=== PATIENT | male | born 1945 | race Caucasian/White ===

== ENCOUNTER 2024-05-30 10:49 | Inpatient (IN) | payer SELFPAY ==
[2024-05-30] VITALS (7 sets, daily range): BP systolic 153–198; BP diastolic 80–115; PULSE 56–81; RESP 15–18; TEMP 36.5–36.8; O2SAT 94–100; BMI 21.2
--- NOTE | ~2024-05-30 | XR_ITS ---
EXAMINATION: XR fluoroscopy no charge DATE: 05/31/2024 16:35 INDICATION: Intertrochanteric fracture of proximal right femur. TECHNIQUE: 5 intraoperative spot fluoroscopic views of right femur were obtained. I was not present. Fluoroscopy exposure time was 52 seconds. COMPARISON: Right hip radiographs 05/30/2024 FINDINGS: There is an intertrochanteric fracture of proximal right femur in near-anatomic alignment. Internal fixation is seen with antegrade intramedullary archana and 2 femoral head/neck screws. IMPRESSION: 1. Intertrochanteric fracture of proximal right femur status post open reduction internal fixation. Reviewed, dictated and finalized at location [] STANT DEAN IMPRESSION: 1. Intertrochanteric fracture of proximal right femur status post open reductio n internal fixation.
--- NOTE | ~2024-05-30 | XR_ITS ---
EXAMINATION: XR hip RT min 2V DATE: 05/30/2024 11:47 INDICATION: Right hip pain. Fall. TECHNIQUE: 2 views of right hip were obtained. COMPARISON: None. FINDINGS: There is a comminuted intertrochanteric fracture of proximal right femur. The main distal f racture fragment demonstrates 10 degrees varus angulation and impaction. There is mild right hip oste oarthritis. There is severe lumbar spondylosis. IMPRESSION: 1. Comminuted intertrochanteric fracture of proximal right femur. 2. Mild right hip osteoarthritis. Reviewed, dictated and finalized at location A. ER SERVICER
--- NOTE | ~2024-05-30 | XR_ITS ---
EXAMINATION: XR chest 1V portable DATE: 05/30/2024 13:05 INDICATION: Fall. TECHNIQUE: A single frontal view of the chest was obtained. COMPARISON: None. FINDINGS: Skinfolds overlie left hemithorax. No pneumonia, pleural effusion, or pneumothorax. The hea rt size is normal. IMPRESSION: 1. No acute cardiopulmonary disease. Reviewed, dictated and finalized at location A. STRIAN TRAINER
--- NOTE | ~2024-05-30 | US_ITS ---
EXAMINATION: US venous doppler LE RT DATE: 06/04/2024 15:41 INDICATION: Postoperative swelling TECHNIQUE: Grayscale ultrasound images without and with compression and Doppler ultrasound images of the right lower extremity veins were obtained. COMPARISON: None. FINDINGS: The visualized portions of right common femoral vein, popliteal vein and greater saphenous vein outfl ow are patent. Thrombus is identified within the superficial femoral vein and deep femoral vein confluence with nonc ompressibility. Noncompressibility is also detected within the right posterior tibial/peroneal veins with absence of flow. IMPRESSION: Thrombus within the superficial femoral vein and deep femoral vein confluence with noncompressibility . Noncompressibility and absence of flow within the right posterior tibial and peroneal veins. Reviewed, dictated and finalized at location A. DEVELOPER DESIGNER IMPRESSION: Thrombus within the superficial femoral vein and deep femoral vein confluence w ith noncompressibility. Noncompressibility and absence of flow within the right posterior tibial and pe roneal veins.
--- OUTSIDE RECORDS SUMMARY | 2024-05-30 11:44 | XMS_ITS | Clinical Summary ---
Author Organization [facility] Address [address] [place] [address] Care Team Providers Care Computer Education Professor Name Role Phone Unavailable Primary Care Provider Unavailabl e Source Comments [facility],non-owned Affiliates and Associated Physician Practices is amultiple site organization consisting of ambulatory clinics and hospital sitesin [place], [place], [place] and [place]. This disclosure is being madepursuant to the Care Everywhere program and may not contain all information available regarding this patient. Last updated 17.[employer] Allergies No known active allergies Medications * Be aware that medications may not be up to date on this document. Alwaysverify current medications with the patient. Medication Sig Dispensed Refills Start Date End Date Status prednisoLONE acetate (Pred Forte) 1 % ophthalmic suspensionIndications: Cystoid macular edema of right eye Instill 1 (one) drop into right eye once daily 15 mL 1 12/20/2022 Active ketorolac (Acular) 0.5 % ophthalmic solutionIndications:Cy stoid macular edema of right eye Instill 1 (one) drop into right eye once daily 10 mL 1 12/20/2022 Active Active Problems Problem Noted Date Diagnosed Date BCC (basal cell carcinoma of skin) 06/28/2022 Dry eye syndrome of both eyes 06/28/2022 Nuclear sclerotic cataract, bilateral 06/28/2022 Optic cupping, bilateral 06/28/2022 Overview (06/28/2022): Increased C/D ratio OU (0.4) Mixed type age-related cataract, both eyes 10/19 Family History Medical History Relation Name Comments CVA Father Cancer - Lung Mother Asthma Neg Hx Cancer - Breast Neg Hx Cancer - Other Neg Hx Cancer - Skin, Melanoma Neg Hx Cancer - Skin, Non Melanoma Neg Hx Eczema Neg Hx Glaucoma Neg Hx Hemophilia Neg Hx Psoriasis Neg Hx Relation Name Status Comments Father Mother Social History Tobacco Use Types Packs/Day Years Used Date Smoking Tobacco: Former Cigarettes 3 30 1 956 - 1985 Smokeless Tobacco: Never Comments:quit smoking 1985 Alcohol Use Standard Drinks/Week Comments Yes 0 (1 standard drink = 0.6 oz pure alcohol) nightly x 60 years - 1 bottle of wine/night and 2-3 drinks of alcohol/night AUDIT-C Answer Date Recorded Q1: How often do you have a drink containing alcohol? Never 12/26/2021 Q2: How many drinks containi ng alcohol do you have on a typical day when you are drinking? Patient does not drink Q3: How often do you have si x or more drinks on one occasion? Never 12/26/2021 Sex and Gender Information Value Date Recorded Sex Assigned at Not on file Gender Identity Not on file Sexual Orientation Not on file Last Filed Vital Signs Vital Sign Reading Time Taken Comments Blood Pressure 186/78 12/26/2021 2:25 PM CDT Pulse 52 12/26/2021 2:25 PM CDT Temperature 36.5 C (97.7 F) 12/26/2021 2:04 PM CDT Respiratory Rate 17 12/26/2021 2:25 PM CDT Oxygen Saturation 99% 12/26/2021 2:25 PM CDT Inhaled Oxygen Concentration - - Weight 61.2 kg (135 lb) 12/26/2021 10:16 AM CDT Height 170.2 cm (5' 7 ) 12/26/2021 10:16 AM CDT Body Mass Index 21.14 12/26/2021 10:16 AM CDT Plan of Treatment Health Maintenance Due Date Last Done Comments HEPATITIS C SCREENING 12/26/1963 DTAP/TDAP/TD VACCINES (1 - Tdap) 1964 PNEUMOCOCCAL VACCINE 50+ (1 of 1 - PCV) 12/31/1995 ZOSTER VACCINE (1 of 2) 12/31/1995 Respiratory Syncytial Virus (RSV) Vaccine Pt: or over 60 yrs (1 - 1-dose 75+ series) 2020 COVID-19 VACCINE ( - 2023-2 5 season) 2023 INFLUENZA VACCINE (#1) 2023 DEPRESSION SCREENING 04/02/2024 HEPATITIS B VACCINE Aged Out No longe r eligible based on patient's age to complete this topic HIB VACCINE Aged Out No longer eligi ble based on patient's age to complete this topic HPV VACCINE Aged Out No longer eligi ble based on patient's age to complete this topic MENINGOCOCCAL (Group B) VACCINE Aged Out No longer eligible based on patient's age to complete this topic MENINGOCOCCAL VACCINE Aged Out No gaby nixon eligible based on patient's age to complete this topic Medical Devices Implanted Type Area Plasma Processing Centrifuge Operator Device Identifier Shelf Expiration Date Model / Serial / Lot Lens Iol 10 D +19.5 [employer] Mod [employer] Bcnvx - [id number] Implanted:Qty: 1 on 12/12/2021 by Kamari Thao MD at [facility] Right: Eye [employer] 04/01/2023 MA60AC.195 / [id number] / Lens Iol 0 D +20.5 [employer]mar Mod L Bcnvx - [id number] Implanted:Qty: 1 on 12/26/2021 by Kamari Thao MD at [facility] Left: Eye [employer] 11/29/2025 SA60WF.205 / [id number] /
--- OUTSIDE RECORDS SUMMARY | 2024-05-30 11:44 | XMS_ITS | Encounter Summary ---
Author Organization [facility] Address [address] [place] [address] Care Team Providers Care Circulation Representative Name Role Phone Unavailable Primary Care Provider Unavailabl e Reason for Visit * Reason Onset Date Comments Nurse Only 02/08/2022 Encounter Details Date Type Department Care Team (Late st Contact Info) Description 02/08/2022 Telephone [facility] [address] [place] [address] Kamari Thao MD [facility] [facility] [place] [address] Nurse Only Social History Tobacco Use Types Packs/Day Years Used Date Smoking Tobacco: Former Cigarettes 06 29 1 956 - 1985 Smokeless Tobacco: Never [...] on file Sexual Orientation Not on file documented as of this encounter Miscellaneous Notes * Telephone Encounter - Devin Mila Y - 02/08/2022 1:36 PM CST Pt is scheduled for today and need to reschedule appointment AGE SUPERVISOR documented in this encounter Plan of Treatment Not on file documented as of this encounter Visit Diagnoses Not on filedocumented in this encounter
--- OUTSIDE RECORDS SUMMARY | 2024-05-30 11:44 | XMS_ITS | Patient Health Summary ---
Author Organization [facility] Address [address] [place] [address] Care Team Providers Care Corporate Associate Name Role Phone Unavailable Primary Care Provider Unavailabl e Note from [facility],non-owned Affiliates and Associated Physician Practices is amultiple site organization consisting of ambulatory clinics and hospital sitesin [place], [place], [place] and [place]. This disclosure is being madepursuant to the Care Everywhere program and may not contain all information available regarding this patient. Last updated 17.[facility] Allergies No known active allergies Medications * Be aware that medications may not be up to date on this document. Alwaysverify current medications with the patient. * prednisoLONE acetate (Pred Forte) 1 % ophthalmic suspension(Started 12/20/2022) Instill 1 (one) drop into right eye once daily 1 refill by 12/20/2023 * ketorolac (Acular) 0.5 % ophthalmic solution(Started 12/20/2022) Instill 1 (one) drop into right eye once daily 1 refill by 12/20/2023 Active Problems Problem Noted Date Diagnosed Date BCC (basal cell carcinoma of skin) 06/28/2022 Dry eye syndrome of both eyes 06/28/2022 Nuclear sclerotic cataract, bilateral 06/28/2022 Optic cupping, bilateral 06/28/2022 Mixed type age-related cataract, both eyes 10/19 Social History Tobacco Use Types Packs/Day Years [...] Mass Index 21.14 12/26/2021 10:16 AM CDT Medical Devices Implanted Type Area Research Staff Member Device Identifier Shelf Expiration Date Model / Serial / Lot Lens Iol 10 D +19.5 [employer] Mod C Bcnvx - [id number] Implanted:Qty: 1 on 12/12/2021 by Kamari Thao MD at [facility] Right: Eye [employer] 04/01/2023 MA60AC.195 / [id number] / Lens Iol 0 D +20.5 [employer] Mod L Bcnvx - [id number] Implanted:Qty: 1 on 12/26/2021 by Kamari Thao MD at [facility] Left: Eye [employer] 11/29/2025 SA60WF.205 / [id number] / Procedures * RETINAL ANALYSIS OCT(Performed 12/20/2022) Performed for Cystoid macular edema of right eye * RETINAL ANALYSIS OCT(Performed 08/21/2022) Performed for Cystoid macular edema of right eye, 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) * OPH OCT TEST [facility](Performed 07/10/2022) Performed for Cystoid macular edema of right eye * OPH OCT TEST [facility](Performed 05/23/2022) Performed for Cystoid macular edema of right eye * EXTRACTION CATARACT WITH INSERTION LENS(Performed 12/26/2021) Performed for Mixed type age-related cataract, both eyes * EXTRACTION CATARACT WITH INSERTION LENS(Performed 12/12/2021) Performed for Mixed type age-related cataract, both eyes * XR FOOT RIGHT 3VW OR MORE(Performed 11/28/2021) Performed for Right foot pain * OPH IOL TEST [facility](Performed 10/19/2021) Performed for Mixed type age-related cataract, both eyes * OPH OCT TEST [facility](Performed 10/19/2021) Performed for Mixed type age-related cataract, both eyes * OPH CORNEAL TOPOGRAPHY TEST [facility](Performed 10/19/2021) Performed for Mixed type age-related cataract, both eyes * [place] [facility] MOHS MG TQ H/N/H/F/G 1ST STAG 5 BLOC(Performed 11/20/2017) Performed for Basal cell carcinoma (BCC) of left side of neck * [place] [facility] MOHS MG TQ H/N/H/F/G EA ADDL STAG(Performed 11/20/2017) Performed for Basal cell carcinoma (BCC) of left side of neck * [place] REPR CMPL WND HEAD,FAC,HAND 2.6-7.5(Performed 11/20/2017) Performed for Basal cell carcinoma (BCC) of left side of neck * [place] BIOPSY OF SKIN LESION(Performed 10/02/2017) Performed for Neoplasm of uncertain behavior of skin * DERMATOPATHOLOGY(Performed 10/02/2017) Performed for Neoplasm of uncertain behavior of skin Results * RETINAL ANALYSIS OCT (12/20/2022 2:06 PM CDT) Anatomical Region Laterality Modality Head External-Camera Photography Narrative 12/21/2022 9:04 PM CDT Images from the original result were not included. OCT Macula OD: Trace recurrent subfoveal SRF, preserved foveal contour OS: Normal retina crosssection with preservation of fovea, clivus, and cellular lamina OD top 08/21/22, bottom 12/20/22: OS top 08/21/22, bottom 12/20/22: Tamica Shah MD OPHTHALMOLOGY SCHED ORD W PACS * RETINAL ANALYSIS OCT (08/21/2022 2:25 PM CDT) Anatomical Region Laterality Modality Head External-Camera Photography Narrative 08/27/2022 11:55 AM CDT Images from the original result were not included. OCT OD: Resolution of CME - Normal retina crosssection with preservation of fovea, clivus, and cellular lamina-improved compared to prior OS: Normal retina crosssection with preservation of fovea, clivus, and cellular lamina- stable compared to prior OD bottom today: OS bottom today: Tamica Shah MD OPHTHALMOLOGY SCHED ORD W PACS * OCT (07/10/2022 3:10 PM CDT) Anatomical Region Laterality Modality Other 07/10/2022 3:10 PM CDT Tamica Shah MD OPHTHALMOLOGY SERVIC ES ORDERABLES * OPH OCT TEST [facility] (05/23/2022 3:49 PM FIBER HEEL PIECE SHAPER) Anatomical Region Laterality Modality Other 05/23/2022 3:49 PM FIBER HEEL PIECE SHAPER Kamari Thao MD OPHTHALMOLOGY SERVIC ES ORDERABLES * XR FOOT RIGHT 3VW OR MORE (11/28/2021 2:41 PM CDT) Anatomical Region Laterality Modality Ankle / Foot Radiographic Delicia ging 11/28/2021 3:05 PM CDT Impressions 11/28/2021 3:08 PM CDT IMPRESSION: Fifth metatarsal fracture > Interpreting Provider: Liliana Humphrey MD on 11/28/2021 3:08 PM Narrative 11/28/2021 3:08 PM CDT PROCEDURE: XR FOOT RIGHT 3VW OR MORE, DATE/TIME OF EXAM: 11/28/2021 2:43 PM, LOCATION [facility] INDICATION: M79.671: Pain in right foot ADDITIONAL CLINICAL INFORMATION: Ordering Provider Reason For Exam: Technologist Note: Weightbearing Additional: COMPARISON: None. FINDINGS: There is a recent fracture through the base of the right fifth metatarsal. Joint spaces are preserved. No focal swelling or gas in the soft tissues. Procedure Note Liliana Humphrey MD - 11/28/2021 PROCEDURE: XR FOOT RIGHT 3VW OR MORE, DATE/TIME OF EXAM: :43 PM, LOCATION [facility] INDICATION: M79.671: Pain in right foot ADDITIONAL CLINICAL INFORMATION: Ordering Provider Reason For Exam: Technologist Note: Weightbearing Additional: COMPARISON: None. FINDINGS: There is a recent fracture through the base of the right fifth metatarsal. Joint spaces are preserved. No focal swelling or gas in the softtissues. IMPRESSION: Fifth metatarsal fracture > Interpreting Provider: Liliana Humphrey MD on 11/28/2021 3:08 PM Denny Saleem MD DIAGNOSTIC IMAGING O RDERABLES * IOL Master (Lenstar) (10/19/2021 1:46 PM CDT) Anatomical Region Laterality Modality Other 10/19/2021 1:46 PM CDT Kamari Thao MD OPHTHALMOLOGY SERVIC ES ORDERABLES * OCT (10/19/2021 1:44 PM CDT) Anatomical Region Laterality Modality Other 10/19/2021 1:44 PM CDT Kamari Thao MD OPHTHALMOLOGY SERVIC ES ORDERABLES * Corneal Topography (10/19/2021 1:35 PM CDT) Anatomical Region Laterality Modality Other 10/19/2021 1:35 PM CDT Kamari Thao MD OPHTHALMOLOGY SERVIC ES ORDERABLES * [place] REPR CMPL WND HEAD,FAC,HAND 2.6-7.5, [place] [facility] MOHS MG TQ H/N/H/F/G EA ADDL STAG, [place] CHMSRG MOHSMG TQ H/N/H/F/G 1ST STAG 5 BLOC (11/20/2017 5:21 PM CDT) Narrative Marixa Car MD - 11/20/2017 5:21 PM CDT Marixa Car MD 11/20/2017 5:21 PM Date of Service: 11/20/2017 Surgery: Mohs micrographic surgery Repair Type: complex Repair Size: 6.2cm Suture Material: monocryl 4-0;Fast Absorbing Gut 5-0 Tumor Type: Basal cell carcinoma Location: left neck Derm-Path A PreOp Size: 2.0 x 2.0 cm. PostOp Size: 3.9 x 3.7 cm. [facility] Level of Defect: fat Stage I: The patient was placed supine on the operating table. The cancer was identified, outlined with a marker, and verified by the patient. The entire surgical field was prepped with Hibiclens. The surgical site was anesthetized using Lidocaine 1% with epinephrine 1:100,000 buffered with sodium bicarbonate 8.4% in a 1:10 ratio. The area of clinically apparent tumor was debulked with 2mm curette. The layer of tissue was then surgically excised using a #15 blade and was then transferred onto a specimen sheet maintaining the orientation of the specimen. Hemostasis was obtained using monopolar electrodessication. The wound site was then covered with a dressing while the tissue samples were processed for examination. The excised tissue was transported to the [facility] histology laboratory maintaining the tissue orientation. The tissue specimen was relaxed so that the entire surgical margin was in a a single horizontal plane for sectioning andinked for precise mapping. A precise reference map was drawn to reflect the sectioning of the specimen, colored inking of the margins, and orientation on the patient. The tissue was processed using horizontal sectioning ofthe base and continuous peripheral margins. The histopathologic sections were reviewed in conjunction with the reference map. Total blocks: 1 Total slides: 3 Residual tumor was identified and indicated in red on the reference map, identifying the location where further tissue excision was necessary. Therefore, an additional stage of Mohs Micrographic surgery was deemed necessary. Stage II The patient was returned to the operating room, and the area prepped in the usual manner. The residual tumor was excised using the reference map as a guide. The specimen was transfered to a labeled specimen sheet maintaining the orientation of the specimen. Hemostasis was obtained and the wound site was covered with a dressing while the tissue was processed for examination. The excised tissue was transported to the Mohs histology laboratory maintaining orientation. The specimen margins were inked for precise mapping and a reference map was prepared for the is additional stage to maintain precise orientation as described above. The tissue was processed using horizontal sectioning of the base and continuous peripheral margins. The histopathologic sections were reviewed in conjunction with the reference map. Total blocks: 1 Total slides: 3 There were no cancer cells visualized on examination, therefore Mohs surgery was complete. Reconstruction: Complex Closure Primary Surgeon : Josep Research Programmer Surgeon : Martínez The patient was taken to the operative suite and placed supine on the operating room table. The defect was identified. Appropriate markings were made with a marking pen to plan the repair. The area was infiltrated with Lidocaine 1% with epinephrine 1:100,000 buffered with sodium bicarbonate 8.4% in a 1:10 ratio and prepped with Hibiclens and draped with sterile towels. The wound was debeveled and undermined widely. Hemostasis was obtained using monopolar dessication. The dermis and subcutaneous tissue were then approximated using buried vertical mattress sutures. Care was taken to orient tension vectors of the closure to minimize distortion of free margins. Cones of redundant tissue were then excised within relaxed skin tension lines on both sides of the defect and additional buried sutures were placed in a similar fashion where needed. Percutaneous simple running sutures were carefully placed for maximum eversion and meticulous approximation. Repair Size: 6.2 cm Sutures Used: monocryl 4-0;Fast Absorbing Gut 5-0. The wound was cleansed with saline and ointment was applied along the wound surface. A sterile pressure dressing was applied. Wound care instructions were given verbally and in writing. The patient left the operating suite in stable condition. Patient was informed that additional refinement of the resulting surgical scar may be used as a second stage of this reconstruction. The Attending surgeon was present for the cardozo portions of the Mohs surgery and the entire reconstruction and always immediately available. Aristeo Soliz MD Dermatology Mohs Fellow, PGY-5 11/20/2017 3:54 PM Marixa Car MD PROCEDURE/MINOR SURG ICAL ORDERABLES * [place] BIOPSY OF SKIN LESION (10/02/2017 10:45 AM CDT) Narrative Ruby Diego MD - 10/02/2017 10:45 AM CDT Josi Murillo MD 10/02/2017 10:45 AM Risks, benefits and alternatives to shave biopsy were discussed with the patient. Verbal consent obtained. Location: L neck Skin prep: Alcohol Anesthesia: 1% lidocaine with epinephrine Hemostasis: Aluminum Chloride Dressing and wound care discussed. Patient agrees to phone call for results and message if not available. Josi Murillo MD [facility] Dermatology Resident, PGY-3 Ruby Diego MD PROCEDURE/MINOR BROWN RGICAL ORDERABLES * DERMATOPATHOLOGY (10/02/2017 12:00 AM CDT) Case Report Dermatopathology Report Case: [id number] Authorizing Provider: Ruby Diego MD Collected: 10/02/2017 12:00 AM Ordering Location: [facility] Received: 10/04/2017 07:51 AM Dermatology Pathologist: Anat Bhakta MD Specimen: Skin, left neck 12:51 PM CDT DERMATOPATHOLOGY LABORATORY Final Diagnosis Specimen A. SKIN, left neck: BASAL CELL CARCINOMA, NODULAR TYPE (C44.41) 12:51 PM CDT DERMATOPATHOLOGY LABORATORY Clinical History Pigmented BCC vs other. 12:51 PM CDT DERMATOPATHOLOGY LABORATORY Gross Description Specimen A: Received is one formalin filled container labeled with the patient's name and designated left neck. The specimen consists of a shave biopsy measuring [id number]. Jar 0. 12:51 PM CDT DERMATOPATHOLOGY LABORATORY Microscopic Description Specimen A. SKIN, left neck: Within the dermis there are aggregates of basaloid cells with a high nuclear to cytoplasmic ratio and peripheral palisading. 12:51 PM CDT DERMATOPATHOLOGY LABORATORY Disclaimer An external and internal positive and negative controls are appropriate for the histochemical, immunohistochemical and immunofluorescence stain(s) in this case (if any), except where stated explicitly. The performance characteristics of the stain(s) cited in this report were developed and its performance characteristic determined by the Dermatopathology Laboratory at [facility]. These tests need not be, and therefore are not, approved by the [place] Food and Drug Administration. The tests are used for clinical purposes. Billing Codes Specimen Charges Stain Charges 58818 1 8 12:51 PM CDT DERMATOPATHOLOGY LABORATORY Embedded Images 8 12:51 PM CDT DERMATOPATHOLOGY LABORATORY Pathology/Cytolog y TISSUE SPECIMEN FROM SKIN / Unknown 10/02/2017 10/04/2017 7:51 AM CDT Ruby Diego MD LAB - PATHOLOGY/CY TOLOGY ORDERABLES DERMATOPATHOLOGY LABORATORY [facility] - Department of Dermatology [facility], 5th Floor Lab [address] [phone]
--- OUTSIDE RECORDS SUMMARY | 2024-05-30 11:44 | XMS_ITS | Continuity of Care Document ---
Author Organization [facility] Address [address] [place] [address] [place] [address] Phone Care Team Providers Care Shelter Supervisor Name Role Phone Pablito Zavala DO Unavailable Unavailable Advance Directives Directive Yes / No Effective Date File Name No Information Encounters Encounter Description Practice Location Reason(s) For Visit Diagnoses Date Provider Providers Copied on Encounter [facility], [address] [place] [address] [address], [place], [place], [id number], [place] tel:[phone] SEC [facility][note 3] No Information Sally Moore. [address] [facility], [place], [address], [place]. tel:[phone] Family History Family Member Type Diagnosis Age At Onset No Information Payers Payer name Insurance type Covered libertarian ID Authoriza tion(s) No Information Social History Type Description Quantity Date Captured Comments Sex Male Smoking Status No Information Chief Complaint And Reason For Visit No Information Reason For Referral Reason For Referral No Information History Of Present Illness Encounter Date Complaint History Of Prese nt Illness No Information Functional Status Date Functional Assessmen t No Information Instructions Date Instruction Additional Infor mation No Information Assessments Type Assessment Date No Information Patient Care Teams Name Effective Dates (start - stop) Status Members No Information
--- OUTSIDE RECORDS SUMMARY | 2024-05-30 11:44 | XMS_ITS | Referral Summary ---
Author Organization [facility] [employer] Address [address] [place] [address] Care Team Providers Care Pheresis Specialist Name Role Phone Unavailable Primary Care Provider Unavailabl e Source Comments [facility]non-owned Affiliates and Associated Physician Practices is amultiple site organization consisting of ambulatory clinics and hospital sitesin [place], [place], [place] and [place]. This disclosure is being madepursuant to the Care Everywhere program and may not contain all information available regarding this patient. Last updated 17.[facility] Allergies No known active allergies Medications * [...] Former Cigarettes 3 30 1 956 - 1986 Smokeless Tobacco: Never Comments:quit smoking 1985 Alcohol [...] 12/26/2021 10:16 AM CDT Plan of Treatment Not on file Medical Devices Implanted Type Area Waterworks Chief Engineer Device Identifier Shelf Expiration Date Model / Serial / Lot Lens Iol 10 D +19.5 [employer] Bcnvx - [id number] Implanted:Qty: 1 on 12/12/2021 by Kamari Thao MD at [facility] Right: Eye [employer] 04/01/2023 MA60AC.195 / [id number] / Lens Iol 0 D +20.5 [employer] Mod L Bcnvx - [id number] Implanted:Qty: 1 on 12/26/2021 by Kamari Thao MD at [facility] Left: Eye [employer] 11/29/2025 SA60WF.205 / [id number] /
--- NOTE | 2024-05-30 12:34 | ECG_ITS ---
Test Date: 2024-05-30 12:45:45 Measurements Intervals [place] Rate: 61 P: -6 [place]: 120 QRS: -11 QRSD: 90 T: 17 QT: 412 QTc: 418 Interpretive Statements SINUS RHYTHM VOLTAGE CRITERIA FOR LVH CANNOT R/O SEPTAL INFARCT, AGE INDETERMINATE CONSIDER INFERIOR INFARCT, AGE INDETERMINATE BASELINE ARTIFACT- I, II, III, AVR, AVL, AVF, V1-V6 ABNORMAL ECG No previous ECG available for comparison Electronically Signed On 05-30-2024 13:00:58 SOCIAL MEDIA MARKETING MANAGER by Abelardo Berry D.O.
[2024-05-30] MEDS: HYDROcodone/acetaminophen (*CRX) 5-325 MG TABLET 2 TAB PO (12:49)
--- OUTSIDE RECORDS SUMMARY | 2024-05-30 12:56 | XMS_ITS | Clinical Summary ---
Author Organization [facility] [employer] Address [address] [facility] [place] [address] Care Team Providers Care Dean Of Student Services Name Role Phone Unavailable Primary Care Provider Unavailabl e Source Comments [facility] [employer],non-owned Affiliates and Associated Physician Practices is amultiple site organization consisting of ambulatory clinics and hospital sitesin [place], [place], [place] and [place]. This disclosure is being madepursuant to the Care Everywhere program and may not contain all information available regarding this patient. Last updated 17.[employer] Allergies No known active allergies Medications * [...] this topic Medical Devices Implanted Type Area Assessment Nurse Practitioner Device Identifier Shelf Expiration Date Model / Serial / Lot Lens Iol 10 D +19.5 [employer] Mod [employer] Bcnvx - [id number] Implanted:Qty: 1 on 12/12/2021 by Kamari Thao MD at [facility] Right: Eye [employer] 04/01/2023 MA60AC.195 / [id number] / Lens Iol 0 D +20.5 [employer] Mod L Bcnvx - [id number] Implanted:Qty: 1 on 12/26/2021 by Kamari Thao MD at [facility] Left: Eye [employer] 11/29/2025 SA60WF.205 / [id number] /
--- OUTSIDE RECORDS SUMMARY | 2024-05-30 12:56 | XMS_ITS | Continuity of Care Document ---
Author Organization [facility] Address [id number] [place] [address] [place] [address] Phone Care Team Providers Care Java Lead Name Role Phone Pablito Zavala DO Unavailable Unavailable Advance Directives Directive Yes / No Effective Date File Name No Information Encounters Encounter Description Practice Location Reason(s) For Visit Diagnoses Date Provider Providers Copied on Encounter [facility], [id number] [place] [address] [address], [place], [place], [id number], [place] tel:[phone] [facility] No Information Sally Moore. [address] [facility], [place], [address], [place]. tel:[phone] Family History Family Member Type Diagnosis Age At Onset No Information Payers Payer name Insurance type Covered republican ID Authoriza tion(s) No Information Social History [...]
--- OUTSIDE RECORDS SUMMARY | 2024-05-30 12:56 | XMS_ITS | Encounter Summary ---
Author Organization [facility] Address [address] [place] [place] [address] Care Team Providers Care Vegetable Harvest Machine Operator Name Role Phone Unavailable Primary Care Provider Unavailabl e Reason for Visit * Reason Onset Date Comments Nurse Only 02/08/2022 Encounter Details Date Type Department Care Team (Late st Contact Info) Description 02/08/2022 Telephone [facility] [address] [place] [address] Kamari Thao MD [facility] [facility] DE[place] [address] Nurse Only Social History Tobacco [...] for today and need to reschedule appointment D SCOUT documented in this encounter Plan of Treatment Not on file documented as of this encounter Visit Diagnoses Not on filedocumented in this encounter
--- OUTSIDE RECORDS SUMMARY | 2024-05-30 12:56 | XMS_ITS | Referral Summary ---
Author Organization [facility] [employer] Address [address] [place] [address] Care Team Providers Care Forest Manager Name Role Phone Unavailable Primary Care Provider Unavailabl e Source Comments [facility] [employer],non-owned Affiliates and Associated Physician Practices is amultiple site organization consisting of ambulatory clinics and hospital sitesin [place], [place], [place] and [place]. This disclosure is being madepursuant to the Care Everywhere program and may not contain all information available regarding this patient. Last updated 17.[employer] [employer] Allergies No known active allergies Medications * [...] on file Medical Devices Implanted Type Area Energy Sales Broker Device Identifier Shelf Expiration Date Model / Serial / Lot Lens Iol 10 D +19.5 [employer] Bcnvx - [id number] Implanted:Qty: 1 on 12/12/2021 by Kamari Thao MD at [facility] Right: Eye [employer] 04/01/2023 MA60AC.195 / [id number] / Lens Iol 0 D +20.5 [employer] Bcnvx - [id number] Implanted:Qty: 1 on 12/26/2021 by Kamari Thao MD at [facility] Left: Eye [employer] 11/29/2025 SA60WF.205 / [id number] /
--- OUTSIDE RECORDS SUMMARY | 2024-05-30 12:56 | XMS_ITS | Patient Health Summary ---
Author Organization [facility] [employer] Address [address] [facility] [place] [address] Care Team Providers Care Education And Training Manager Name Role Phone Unavailable Primary Care Provider Unavailabl e Note from [facility] [employer] [facility],non-owned Affiliates and Associated Physician Practices is amultiple site organization consisting of ambulatory clinics and hospital sitesin [place], [place] and [place]. This disclosure is being madepursuant to the Care Everywhere program and may not contain all information available regarding this patient. Last updated 17.[facility] [employer] Allergies No known active allergies Medications * [...] AM CDT Medical Devices Implanted Type Area Material Control Associate Device Identifier Shelf Expiration Date Model / Serial / Lot Lens Iol 10 D +19.5 [employer] Mod [employer] Bcnvx - [id number] Implanted:Qty: 1 on 12/12/2021 by Kamari Thao MD at [facility] Right: Eye [employer] 04/01/2023 MA60AC.195 / [id number] / Lens Iol 0 D +20.5 [employer] L Bcnvx - [id number] Implanted:Qty: 1 on 12/26/2021 by Kamari Thao MD at [facility] Left: Eye [employer] 11/29/2025 SA60WF.205 / [id number] / Procedures * RETINAL ANALYSIS OCT(Performed [...] Mixed type age-related cataract, both eyes * [facility] MOHS MG TQ H/N/H/F/G 1ST STAG 5 BLOC(Performed 11/20/2017) Performed for Basal cell carcinoma (BCC) of left side of neck * [facility] MOHS MG TQ H/N/H/F/G EA ADDL STAG(Performed 11/20/2017) Performed for Basal cell carcinoma (BCC) of left side of neck * [facility] REPR CMPL WND HEAD,FAC,HAND 2.6-7.5(Performed 11/20/2017) Performed for Basal cell carcinoma (BCC) of left side of neck * [facility] BIOPSY OF SKIN LESION(Performed 10/02/2017) Performed for [...] OPH OCT TEST [facility] (05/23/2022 3:49 PM DELIVERY OF SHOPPING NEWS) Anatomical Region Laterality Modality Other 05/23/2022 3:49 PM DELIVERY OF SHOPPING NEWS Kamari Thao MD OPHTHALMOLOGY SERVIC ES ORDERABLES [...] DATE/TIME OF EXAM: 11/28/2021 2:43 PM, LOCATION [facility] INDICATION: M79.671: Pain in right [...] MORE, DATE/TIME OF EXAM: :43 PM, LOCATION [facility] INDICATION: M79.671: Pain in right [...] Thao MD OPHTHALMOLOGY SERVIC ES ORDERABLES * [facility] REPR CMPL WND HEAD,FAC,HAND 2.6-7.5, [facility] MOHS MG TQ H/N/H/F/G EA ADDL STAG, [facility] MOHSMG TQ H/N/H/F/G 1ST STAG 5 [...] cm. PostOp Size: 3.9 x 3.7 cm. [facility] Level of Defect: fat Stage I: [...] The excised tissue was transported to the [facility] histology laboratory maintaining the tissue orientation. [...] Reconstruction: Complex Closure Primary Surgeon : Josep Mill Dresser Surgeon : Martínez The patient was taken [...] Car MD PROCEDURE/MINOR SURG ICAL ORDERABLES * [facility] BIOPSY OF SKIN LESION (10/02/2017 10:45 AM [...] message if not available. Josi Murillo MD [facility] Dermatology Resident, PGY-3 Ruby Diego MD PROCEDURE/MINOR BROWN RGICAL ORDERABLES * DERMATOPATHOLOGY (10/02/2017 12:00 AM CDT) Case Report Dermatopathology Report Case: [id number] Authorizing Provider: Ruby Diego MD Collected: 10/02/2017 12:00 AM Ordering Location: [facility] Received: 10/04/2017 07:51 AM Dermatology Pathologist: [...] specimen consists of a shave biopsy measuring [id number]. Jar 0. 12:51 PM CDT DERMATOPATHOLOGY LABORATORY [...] characteristic determined by the Dermatopathology Laboratory at [facility]. These tests need not be, and therefore are not, approved by the [place] Food and Drug Administration. The tests are used for clinical purposes. Billing Codes Specimen Charges Stain Charges 28275 1 8 12:51 PM CDT DERMATOPATHOLOGY LABORATORY Embedded Images 8 12:51 PM CDT DERMATOPATHOLOGY LABORATORY Pathology/Cytolog y TISSUE SPECIMEN FROM SKIN / Unknown 10/02/2017 10/04/2017 7:51 AM CDT Ruby Diego MD LAB - PATHOLOGY/CY TOLOGY ORDERABLES DERMATOPATHOLOGY LABORATORY [facility] - Department of Dermatology [facility], 5th Floor Lab [address] [phone]
[2024-05-30 13:05] LABS: Basophils Percent Auto 0.2 % (0.2-1.2); Eosinophils Absolute Auto 0.1 K/mm3 (0-0.3); Eosinophils Percent Auto 0.7 % (0-4.4); Hematocrit 40.4 % (42.0-52.0); Hemoglobin 13.5 g/dL (14.0-18.0); Immature Granulocyte Absolute 0.02 K/mm3 (0.00-0.031); Immature Granulocyte Percent A 0.2 % (0-0.5); Lymphocytes Absolute Auto 1.13 K/mm3 (0.9-3.2); Lymphocytes Percent Auto 12.4 % (18.3-44.2); Mean Corpuscular HGB Conc 33.4 g/dl (32-36); Mean Corpuscular Hemoglobin 35.9 pg (26-34); Mean Corpuscular Volume 107.4 fl (80-100); Mean Platelet Volume 11.1 fl (7.4-10.4); Monocytes Percent Auto 10.6 % (2.6-8.5); Neutrophils Absolute Auto 6.9 K/mm3 (1.3-6.7); Neutrophils Percent Auto 75.9 % (45.5-73.1); Platelet Count Result 206 k/mm3 (150-375); Red Blood Count 3.76 M/mm3 (4.6-6.20); Red Cell Distribution Width 13.1 % (11.5-14.5); White Blood Count 9.1 K/mm3 (4.5-10.0)
[2024-05-30 13:26] LABS: Alanine Aminotransferase 17 U/L (6-50); Alkaline Phosphatase 83 U/L (38-126); Anion Gap 12 mmol/L (4-12); Aspartate Amino Transferase 27 U/L (17-59); Bilirubin,Total 1.1 mg/dL (0.2-1.3); Blood Urea Nitrogen 36 mg/dL (9-20); Calcium 9.6 mg/dL (8.4-10.2); Carbon Dioxide 24 mmol/L (22-30); Chloride 102 mmol/L (98-107); Estimated CRCL calculation 38 ml/min; Estimated Glomerular Filt Rate > 60; Ethanol < 10 mg/dL (<10); Glucose 92 mg/dL (65-110); Magnesium 1.6 mg/dL (1.6-2.3); Phosphorus 3.8 mg/dL (2.5-4.5); Potassium 4.7 mmol/L (3.4-5.0); Sodium 138 mmol/L (137-145)
--- NOTE | 2024-05-30 13:32 | ED_ITS ---
HPI - General Adult General Chief complaint: Extremity Injury, Lower Stated complaint: rt hip pain-GLF last Sunday Time Seen by Provider: 05/30/24 11:50 History of Present Illness HPI narrative: This is a 70-year-old male with history of daily alcohol use presenting for hip pain. Patient says he tripped and fell 5 days ago. Since then he has had significant pain in his right hip and has been and I will bear weight. He has gone to his chiropractor twice had x-rays which he was told were normal. Patient came in today because he was unable to bear weight. Patient drinks a 5th of scotch per day. Last drink was 2 days ago. Patient denies any history of withdrawal. Related Data Allergies Allergy/AdvReac Type Severity Reaction Status Date / Time No Known Allergies Allergy Unverified 07/13/11 12:54 [facility] Family History Family History (Updated 11/27/13 @ 07:13 by DOCTOR UNKNOWN) Father Cerebrovascular accident Grandparent Family history of heart disease in male family member before age 55 Social History Social History Alcohol intake: current Exam 2 Narrative: APPEARANCE: No apparent distress. Head: atraumatic. EYES: EOMI, NOSE: Atraumatic NECK: Trachea midline RESPIRATORY: No increased rate of breathing CARDIOVASCULAR: RRR, +2 edema of the right foot ABDOMINAL: Non-distended MUSCULOSKELETAl: No obvious deformity, no shortening or rotation NEURO: Alert. Moving 4/4 extremities SKIN:: Warm, dry. Normal color PSYCHIATRIC: Normal affect Course Vital Signs Vital signs: Vital Signs Temperature 97.8 F 05/30/24 11:08 Pulse Rate 81 05/30/24 11:08 Respiratory Rate 16 05/30/24 11:08 Blood Pressure 153/92 H 05/30/24 11:08 Pulse Oximetry 100 05/30/24 11:08 Oxygen Delivery Room Air 05/30/24 11:08 Temperature 97.8 F 05/30/24 11:08 Pulse Rate 65 05/30/24 13:30 Respiratory Rate 18 05/30/24 13:30 Blood Pressure 153/115 H 05/30/24 13:30 Pulse Oximetry 97 05/30/24 13:30 Oxygen Delivery Room Air 05/30/24 11:08 Medical Decision Making [facility] Narrative Medical decision making narrative: -Course: 78-year-old male presenting 5 days after ground level fall. Found to have a comminuted intertrochanteric hip fracture. Screening lab work EKG and chest x-ray were obtained. Patient has a history heavy alcohol use although he denies any history of withdrawal. He does not currently have any withdrawal symptoms at the moment and is roughly 48 hours out from his last drink. CIWA protocol initiated in case he develops withdrawal symptoms. Patient will be admitted the hospital for further management. Ortho C/s'ed. -DDX includes but is not limited to: Hip fracture, dislocation, muscle strain, alcohol withdrawal -Co-morbidities complicating care: Daily ETOH use Vital Signs Vital Signs: Vital Signs Temperature 97.8 F 05/30/24 11:08 Pulse Rate 81 05/30/24 11:08 Respiratory Rate 16 05/30/24 11:08 Blood Pressure 153/92 H 05/30/24 11:08 Pulse Oximetry 100 05/30/24 11:08 Oxygen Delivery Room Air 05/30/24 11:08 Temperature 97.8 F 05/30/24 11:08 Pulse Rate 65 05/30/24 13:30 Respiratory Rate 18 05/30/24 13:30 Blood Pressure 153/115 H 05/30/24 13:30 Pulse Oximetry 97 05/30/24 13:30 Oxygen Delivery Room Air 05/30/24 11:08 Lab Data 05/30/24 12:53 05/30/24 12:53 Labs: Lab Results 05/30/24 05/30/24 Range/Units 12:53 13:07 WBC 9.1 (4.5-10.0) K/mm3 RBC 3.76 L (4.6-6.20) M/mm3 Hgb 13.5 L (14.0-18.0) g/dL Hct 40.4 L (42.0-52.0) % MCV 107.4 H (80-100) fl MCH 35.9 H (26-34) pg MCHC 33.4 (32-36) g/dl RDW 13.1 (11.5-14.5) % Plt Count 206 (150-375) k/mm3 MPV 11.1 H (7.4-10.4) fl Immature Gran % (Auto) 0.2 (0-0.5) % Neut % (Auto) 75.9 H (45.5-73.1) % Lymph % (Auto) 12.4 L (18.3-44.2) % Banks % (Auto) 10.6 H (2.6-8.5) % Eos % (Auto) 0.7 (0-4.4) % Baso % (Auto) 0.2 (0.2-1.2) % Lymph # (Auto) 1.13 (0.9-3.2) K/mm3 Banks # (Auto) 1.0 H (0.1-0.6) K/mm3 Eos # (Auto) 0.1 (0-0.3) K/mm3 Baso # (Auto) 0.0 (0.0-0.1) K/mm3 Abs Immat Gran (auto) 0.02 (0.00-0.031) K/mm3 Absolute Neuts (auto) 6.9 H (1.3-6.7) K/mm3 Absolute Nucleated RBC 0.000 (0.0-0.012) K/mm3 Nucleated RBC % 0.0 (0.0-0.2) % PT 13.1 (11.1-14.7) Seconds INR 0.9 APTT 26.7 (22.3-36.8) Seconds Sodium 138 (137-145) mmol/L Potassium 4.7 (3.4-5.0) mmol/L Chloride 102 (98-107) mmol/L Carbon Dioxide 24 (22-30) mmol/L Anion Gap 12 (4-12) mmol/L BUN 36 H (9-20) mg/dL Creatinine 1.10 (0.7-1.3) mg/dL Estim Creat Clear Calc 38 ml/min Estimated GFR > 60 (59 - ) Glucose 92 (65-110) mg/dL Calcium 9.6 (8.4-10.2) mg/dL Phosphorus 3.8 (2.5-4.5) mg/dL Magnesium 1.6 (1.6-2.3) mg/dL Total Bilirubin 1.1 (0.2-1.3) mg/dL AST 27 (17-59) U/L ALT 17 (6-50) U/L Alkaline Phosphatase 83 (38-126) U/L Total Protein 8.0 (6.3-8.2) g/dL Albumin 4.0 (3.5-5.1) g/dL Urine Opiates Screen Negative (Negative) Urine Methadone Screen Negative (Negative) Ur Barbiturates Screen Negative (Negative) Ur Phencyclidine Scrn Negative (Negative) Ur Amphetamine Screen Negative (Negative) U Benzodiazepines Scrn Negative (Negative) Urine Cocaine Screen Negative (Negative) U Cannabinoids Screen Negative (Negative) Ethyl Alcohol < 10 (<10) mg/dL Discharge Plan Discharge Clinical Impression: ETOH abuse, Hip fracture Patient Disposition: Still a Patient Condition: Stable Patient Language: Faroese Follow-up/Referrals: UNKNOWN,DOCTOR [Primary Care Provider] -
[2024-05-30 13:34] LABS: INR 0.9; Partial Thromboplastin Time 26.7 Seconds (22.3-36.8); Prothrombin Time 13.1 Seconds (11.1-14.7)
[2024-05-30 13:37] LABS: Amphetamine Screen Urine Negative (Negative); Barbiturate Screen Urine Negative (Negative); Benzodiazepines Screen Urine Negative (Negative); Cannabinoid Screen Urine Negative (Negative); Cocaine Screen Urine Negative (Negative); Methadone Screen Urine Negative (Negative); Opiate Screen Urine Negative (Negative); Phencyclidine Screen Urine Negative (Negative)
[2024-05-30] MEDS: LACTATED RINGERS 1,000 ML 75 ML IV CONT (17:20)
--- NOTE | 2024-05-30 19:06 | PM.IMHP ---
H&P: HPI History of Present Illness Date/Time: 05/30/24 19:06 Chief Complaint: Hip Pain, Low Back Pain Narrative: 78 y/o M presents here with right hip pain and low back pain with PMH of daily alcohol use. The patient presents here from home via EMS for further evaluation of right hip pain and low back pain. He reports onset after he had a ground level fall on Sunday, 05/23. Reports he tripped on a blanket and fell onto his right side. He denies head strike or loss of consciousness. He is not on anticoagulation currently. He has been was ambulatory. Patient saw a chiropractor twice and took an x-ray which was reportedly normal. He then had an adjustment which he reports briefly improved. Then pain became worse on Sunday/Sunday and patient was no longer ambulatory. He denies any numbness or tingling to the affected extremity. Initial VS at presentation: 97.8? F, HR 81, RR 16, 153/92, and 100% on RA. ED workup showed: No leukocytosis, hemoglobin 13.5, normal coags, no significant electrolyte derangements, creatinine 1.1 and GFR >60, UDS negative. Ethanol negative. Hip XR showed comminuted intracranial tear fracture of the proximal right femur and mild right hip osteoarthritis. CXR showed no acute cardiopulmonary disease. EKG showed sinus rhythm. Review of Systems Review of Systems: All systems reviewed & are unremarkable except as noted in HPI and below [facility] Family History Family History Father Cerebrovascular accident Grandparent Family history of heart disease in male family member before age 55 Social History Social History Alcohol intake: current Meds Home Medications and Allergies Allergies Allergy/AdvReac Type Severity Reaction Status Date / Time No Known Allergies Allergy Unverified 07/13/11 12:54 Vital Signs Vital Signs - 24 hr 05/30/24 11:08 05/30/24 13:30 05/30/24 14:30 Temperature 97.8 F Pulse Rate 81 65 56 L Respiratory Rate 16 18 16 Blood Pressure 153/92 H 153/115 H 165/89 H Pulse Oximetry 100 97 97 Oxygen Delivery Room Air 05/30/24 16:00 05/30/24 17:30 Temperature Pulse Rate 61 65 Respiratory Rate 15 16 Blood Pressure 181/88 H 198/106 H Pulse Oximetry 99 97 Oxygen Delivery Exam Const: General: comfortable and no acute distress Other: Male, nontoxic appearance, well-appearing HENMT: Face/Nose/Sinus: Normal nares present Mouth: Yes moist mucous membranes Eyes: General: appearance normal, both eyes and all related structures Sclera: sclerae normal Pupils: Equal, round and reactive pupils present EOM: EOMs intact bilaterally Resp: Effort & Inspection: normal respiratory effort Auscultation: clear to auscultation bilaterally Cardio: Rate: regular rate Rhythm: regular rhythm Other: S1-S2 present without murmur, rub, ectopy GI: Other: Abdomen soft, nondistended, nontender. Normoactive bowel sounds in all quadrants. Skin: General skin exam: normal color and no rashes or lesions noted Wounds: no wounds Neuro: Speech: normal speech Motor exam (neuro): 5/5 motor strength present throughout Sensory Exam: normal sensation Other: A&O x4. No agitation, hallucinations, or tremor noted. Extrem: General: normal to inspection Other: DP pulses 2+ bilaterally Psych: Mental Status: mental status grossly normal Affect: normal affect Other: Good insight and judgment, pleasant. H&P: Results Labs Labs: Short CBC 05/30/24 Range/Units 12:53 WBC 9.1 (4.5-10.0) K/mm3 Hgb 13.5 L (14.0-18.0) g/dL Hct 40.4 L (42.0-52.0) % Plt Count 206 (150-375) k/mm3 BMP 05/30/24 12:53 Sodium 138 Potassium 4.7 Chloride 102 Carbon Dioxide 24 BUN 36 H Creatinine 1.10 Glucose 92 Calcium 9.6 Liver Function 05/30/24 Range/Units 12:53 Total Bilirubin 1.1 (0.2-1.3) mg/dL AST 27 (17-59) U/L ALT 17 (6-50) U/L Alkaline Phosphatase 83 (38-126) U/L Albumin 4.0 (3.5-5.1) g/dL Assessment and Plan Assessment and plan (1) Hip fracture: Qualifiers: Encounter type: initial encounter Fracture type: closed Laterality: right Qualified Code(s): S72.001A - Fracture of unspecified part of neck of right femur, initial encounter for closed fracture Code(s): S72.009A - Fracture of unspecified part of neck of unspecified femur, initial encounter for closed fracture Status: Acute Assessment and Plan: - Hip XR: 1. Comminuted intertrochanteric fracture of proximal right femur. 2. Mild right hip osteoarthritis. - check EKG, type and screen, BNP - orthopedics consulted, awaiting formal recs - analgesics p.r.n. - bedrest - NPO at midnight - will need PT/OT eval and treat postoperatively Plan Patient is a daily drinker, last drink was on Tuesday 05/23. Drinks a bottle of scotch and a bottle of wine nightly. Denies hx of withdrawal. No complaints of tremor, nausea, vomiting, hallucinations, agitation, or anxiety. Monitor. Diet: NPO midnight GI Prophylaxis: Not currently indicated DVT Prophylaxis: SCDs Lines: Peripheral Code Status: Full code Quality VTE Prophylaxis VTE prophylaxis: mechanical ordered Hospitalist MIPS Advance Care Plan I have confirmed that the patient's Advanced Care Plan is present, code status is documented, or surrogate decision maker is listed in patient medical record.: Yes Medication Reconciliation I have utilized all available resources to obtain, update and review the patients current medications (includes all prescriptions, OTC, herbals, cannabis, and nutritional supplements).: Yes
[2024-05-30 21:12] LABS: Glucose Point of Care 111 mg/dl (65-105)
--- NOTE | 2024-05-30 22:52 | ADMGEN ---
This patient, Omi Wadsworth, was admitted to [facility] Room 332-01. Patient/family oriented to hospital policies and general routines including ID bracelet, bed and alarms, visiting hours, pain management, procedures, bathroom and other care routines, personal items, smoking policy, room service/diet, and visiting hours. Information on how to activate the Rapid Response Team has been discussed. Patient/Family are encouraged to report perceived risks to care and to ask questions if they do not understand what they are told or what they should do.
[2024-05-30 23:51] LABS: Glucose Point of Care 90 mg/dl (65-105)
[2024-05-31] VITALS (15 sets, daily range): BP systolic 143–201; BP diastolic 72–114; PULSE 62–108; RESP 15–21; TEMP 36.2–37.5; O2SAT 96–100
[2024-05-31 05:47] LABS: Glucose Point of Care 72 mg/dl (65-105)
[2024-05-31 06:58] LABS: Basophils Percent Auto 0.5 % (0.2-1.2); Eosinophils Absolute Auto 0.1 K/mm3 (0-0.3); Eosinophils Percent Auto 2.3 % (0-4.4); Hematocrit 34.5 % (42.0-52.0); Hemoglobin 11.3 g/dL (14.0-18.0); Immature Granulocyte Absolute 0.01 K/mm3 (0.00-0.031); Immature Granulocyte Percent A 0.2 % (0-0.5); Lymphocytes Percent Auto 21.5 % (18.3-44.2); Mean Corpuscular HGB Conc 32.8 g/dl (32-36); Mean Corpuscular Hemoglobin 35.5 pg (26-34); Mean Corpuscular Volume 108.5 fl (80-100); Mean Platelet Volume 10.7 fl (7.4-10.4); Monocytes Absolute Auto 0.7 K/mm3 (0.1-0.6); Monocytes Percent Auto 11.6 % (2.6-8.5); Neutrophils Absolute Auto 3.6 K/mm3 (1.3-6.7); Neutrophils Percent Auto 63.9 % (45.5-73.1); Platelet Count Result 180 k/mm3 (150-375); Red Blood Count 3.18 M/mm3 (4.6-6.20); Red Cell Distribution Width 12.7 % (11.5-14.5); White Blood Count 5.6 K/mm3 (4.5-10.0)
[2024-05-31 07:10] LABS: Anion Gap 8 mmol/L (4-12); Blood Urea Nitrogen 25 mg/dL (9-20); Calcium 8.8 mg/dL (8.4-10.2); Carbon Dioxide 23 mmol/L (22-30); Chloride 104 mmol/L (98-107); Estimated CRCL calculation 46 ml/min; Estimated Glomerular Filt Rate > 60; Glucose 94 mg/dL (65-110); Potassium 4.5 mmol/L (3.4-5.0); Sodium 135 mmol/L (137-145)
[2024-05-31 07:15] LABS: NT Pro B Type Natriuretic Pept 2720 pg/mL (19.9-100)
[2024-05-31 08:10] LABS: Glucose Point of Care 89 mg/dl (65-105)
[2024-05-31] MEDS: LACTATED RINGERS 1,000 ML 75 ML IV CONT (08:25)
--- NOTE | 2024-05-31 10:23 | P.PNIM_ITS ---
Progress Note: A&P Assessment and Plan (1) Hip fracture: Qualifiers: Encounter type: initial encounter Fracture type: closed Laterality: right Qualified Code(s): S72.001A - Fracture of unspecified part of neck of right femur, initial encounter for closed fracture Code(s): S72.009A - Fracture of unspecified part of neck of unspecified femur, initial encounter for closed fracture Status: Acute Assessment and Plan: * Hip XR: 1. Comminuted intertrochanteric fracture of proximal right femur. 2. Mild right hip osteoarthritis. * check EKG, type and screen, BNP * orthopedics consulted, awaiting formal recs * analgesics p.r.n. * bedrest * NPO at midnight * will need PT/OT eval and treat postoperatively * Post-op DVT prophylaxis (2) ETOH abuse: Code(s): F10.10 - Alcohol abuse, uncomplicated Status: Acute Assessment and Plan: Patient is a daily drinker, last drink was on Tuesday 05/23. Drinks a bottle of scotch and a bottle of wine nightly. Denies hx of withdrawal. * IV fluids * Last drink 7 days ago * Thiamine, folic acid, and multi-vitamin will add post op * PPI daily * librium if indicated * Ativan PRN for seizure activity * CIWA daily * Monitor and replenish electrolytes as needed * Seizure precautions if indicated Plan Code status: Full code per patient DVT prophylaxis: SCD until post-op Stress ulcer prophylaxis: Pepcid PT/OT notes: PT/OT eval post-op Disposition: patient continues admission to the medical unit for further evaluation and treatment of right proximal femur fracture orthopedics consulted likely plan for surgery today or tomorrow. PT/ OT evaluation postop for further discharge planning needs. Time Spent With Patient Time with patient: 15 - 25 minutes Subjective Date/time seen: 05/31/24 10:23 Interval history: Patient is a 78-year-old male who was admitted for further evaluation and treatment of right proximal femur fracture 05/31/2024: Assumed Care Patient still with mild pain but better controlled still non-ambulatory pre-op. Patient denied any CP, SOB, N/V prior to surgery was hypertensive will monitor and evaluate post-op may need to add BP medication. Review of Systems Review of Systems: All systems reviewed & are unremarkable except as noted in HPI and below Exam Narrative: * GENERAL: Alert and oriented x 3. No acute distress. * HEENT: Moist mucous membranes. * LUNGS: Clear to auscultation bilaterally. No accessory muscle use. * CARDIOVASCULAR: Regular rate and rhythm. No murmur. No JVD. S1-S2 * ABDOMEN: Soft, non tenderness and non-distended. No palpable masses. * EXTREMITIES: No edema. Non-tender * SKIN: No rashes or lesions. Skin warm, dry. * NEUROLOGIC: No focal neurological deficits. CN II-XII grossly intact * PSYCHIATRIC: Appropriate mood and affect. Good judgement and insight. Objective Data Vital Signs Vital Signs: Vital Signs - 24 hr 05/30/24 11:08 05/30/24 13:30 05/30/24 14:30 Temperature 97.8 F Pulse Rate 81 65 56 L Respiratory Rate 16 18 16 Blood Pressure 153/92 H 153/115 H 165/89 H Pulse Oximetry 100 97 97 Oxygen Delivery Room Air 05/30/24 16:00 05/30/24 17:30 05/30/24 19:20 Temperature 97.7 F Pulse Rate 61 65 76 Respiratory Rate 15 16 16 Blood Pressure 181/88 H 198/106 H 181/104 H Pulse Oximetry 99 97 98 Oxygen Delivery 05/30/24 20:00 05/31/24 00:00 05/31/24 04:00 Temperature 98.2 F 98.1 F 98.2 F Pulse Rate 56 L 67 63 Respiratory Rate 18 16 16 Blood Pressure 184/80 H 182/79 H 163/97 H Pulse Oximetry 94 96 97 Oxygen Delivery 05/31/24 08:42 05/31/24 09:18 Temperature 98.2 F Pulse Rate 62 Respiratory Rate 18 Blood Pressure 194/88 H Pulse Oximetry 97 96 Oxygen Delivery Room Air Intake/Output Intake/Output: Intake & Output 05/28/24 05/29/24 05/30/24 05/31/24 23:59 23:59 23:59 23:59 Intake Total 1000 Output Total 700 Balance 300 Meds/Results Medications: Active Medications Generic Name Dose Route Start Last Admin Trade Name Freq PRN Reason Stop Dose Admin Acetaminophen 650 mg 05/30/24 19:11 Acetaminophen 325 Mg Tablet PO Q6H PRN Mild Pain (1-3) or Fever Hydrocodone Bitart/Acetaminophen 1 tab 05/30/24 19:11 Hydrocodone/Acetaminophen (*Crx) 5-325 Mg Tablet PO Q6H PRN Pain Rated 4-6 Famotidine 20 mg 05/31/24 21:00 Famotidine 20 Mg/2 Ml Vial IV PUSH Q12HR ABIOLA Lactated Ringer's 1,000 mls @ 75 mls/hr 05/30/24 16:20 05/31/24 08:25 Lr - Lactated Ringers Iv IV CONT 75 mls/hr .[id number] ABIOLA Administration Morphine Sulfate 2 mg 05/30/24 19:11 Morphine Sulfate (*Crx) 2 Mg/Ml Inj IV PUSH Q4H PRN Pain Rated 7-10 Ondansetron HCl 4 mg 05/30/24 19:11 Ondansetron Inj 4 Mg/2 Ml Vial IV PUSH Q6H PRN Nausea And Vomiting Senna/Docusate Sodium 1 tab 05/30/24 19:11 Senna/Docusate Sodium Tablet PO HS PRN Constipation Radiology Results: ITS Impressions Hip X-Ray 05/30/24 11:52 IMPRESSION: 1. Comminuted intertrochanteric fracture of proximal right femur. 2. Mild right hip osteoarthritis. Chest X-Ray 05/30/24 13:10 IMPRESSION: 1. No acute cardiopulmonary disease. Labs Labs: Laboratory Results - last 24 hr 05/30/24 05/30/24 05/30/24 12:53 13:07 20:21 WBC 9.1 RBC 3.76 L Hgb 13.5 L Hct 40.4 L MCV 107.4 H MCH 35.9 H MCHC 33.4 RDW 13.1 Plt Count 206 MPV 11.1 H Immature Gran % (Auto) 0.2 Neut % (Auto) 75.9 H Lymph % (Auto) 12.4 L [place] % (Auto) 10.6 H Eos % (Auto) 0.7 Baso % (Auto) 0.2 Lymph # (Auto) 1.13 [place] # (Auto) 1.0 H Eos # (Auto) 0.1 Baso # (Auto) 0.0 Abs Immat Gran (auto) 0.02 Absolute Neuts (auto) 6.9 H Absolute Nucleated RBC 0.000 Nucleated RBC % 0.0 PT 13.1 INR 0.9 APTT 26.7 Sodium 138 Potassium 4.7 Chloride 102 Carbon Dioxide 24 Anion Gap 12 BUN 36 H Creatinine 1.10 Estim Creat Clear Calc 38 Estimated GFR > 60 Glucose 92 POC Capillary Glucose 111 H Calcium 9.6 Phosphorus 3.8 Magnesium 1.6 Total Bilirubin 1.1 AST 27 ALT 17 Alkaline Phosphatase 83 NT-Pro-B Natriuret Pep Total Protein 8.0 Albumin 4.0 Urine Opiates Screen Negative Urine Methadone Screen Negative Ur Barbiturates Screen Negative Ur Phencyclidine Scrn Negative Ur Amphetamine Screen Negative U Benzodiazepines Scrn Negative Urine Cocaine Screen Negative U Cannabinoids Screen Negative Ethyl Alcohol < 10 Blood Type Antibody Screen 05/30/24 05/31/24 05/31/24 23:43 05:44 06:38 WBC 5.6 RBC 3.18 L Hgb 11.3 L Hct 34.5 L MCV 108.5 H MCH 35.5 H MCHC 32.8 RDW 12.7 Plt Count 180 MPV 10.7 H Immature Gran % (Auto) 0.2 Neut % (Auto) 63.9 Lymph % (Auto) 21.5 [place] % (Auto) 11.6 H Eos % (Auto) 2.3 Baso % (Auto) 0.5 Lymph # (Auto) 1.20 [place] # (Auto) 0.7 H Eos # (Auto) 0.1 Baso # (Auto) 0.0 Abs Immat Gran (auto) 0.01 Absolute Neuts (auto) 3.6 Absolute Nucleated RBC 0.000 Nucleated RBC % 0.0 PT INR APTT Sodium 135 L Potassium 4.5 Chloride 104 Carbon Dioxide 23 Anion Gap 8 BUN 25 H D Creatinine 1.01 Estim Creat Clear Calc 46 Estimated GFR > 60 Glucose 94 POC Capillary Glucose 90 72 Calcium 8.8 Phosphorus Magnesium Total Bilirubin AST ALT Alkaline Phosphatase NT-Pro-B Natriuret Pep 2720 H Total Protein Albumin Urine Opiates Screen Urine Methadone Screen Ur Barbiturates Screen Ur Phencyclidine Scrn Ur Amphetamine Screen U Benzodiazepines Scrn Urine Cocaine Screen U Cannabinoids Screen Ethyl Alcohol Blood Type O Positive Antibody Screen Negative 05/31/24 08:03 WBC RBC Hgb Hct MCV MCH MCHC RDW Plt Count MPV Immature Gran % (Auto) Neut % (Auto) Lymph % (Auto) [place] % (Auto) Eos % (Auto) Baso % (Auto) Lymph # (Auto) [place] # (Auto) Eos # (Auto) Baso # (Auto) Abs Immat Gran (auto) Absolute Neuts (auto) Absolute Nucleated RBC Nucleated RBC % PT INR APTT Sodium Potassium Chloride Carbon Dioxide Anion Gap BUN Creatinine Estim Creat Clear Calc Estimated GFR Glucose POC Capillary Glucose 89 Calcium Phosphorus Magnesium Total Bilirubin AST ALT Alkaline Phosphatase NT-Pro-B Natriuret Pep Total Protein Albumin Urine Opiates Screen Urine Methadone Screen Ur Barbiturates Screen Ur Phencyclidine Scrn Ur Amphetamine Screen U Benzodiazepines Scrn Urine Cocaine Screen U Cannabinoids Screen Ethyl Alcohol Blood Type Antibody Screen Quality VTE Prophylaxis VTE prophylaxis: mechanical ordered -Patient's previous records reviewed on admission -ER notes reviewed in detail on admission -discussed all findings and current treatment plan with patient/Family/POA -Consultations reviewed for recommendations -Patient's disposition for safe discharge discussed with case management associate Dictation performed by [employer] direct speech recognition software, therefore lab systems analyst variants and typographical errors may occur. Hospitalist MIPS Advance Care Plan I have confirmed that the patient's Advanced Care Plan is present, code status is documented, or surrogate decision maker is listed in patient medical record.: Yes Medication Reconciliation I have utilized all available resources to obtain, update and review the patients current medications (includes all prescriptions, OTC, herbals, cannabis, and nutritional supplements).: Yes The patient is not eligible for med reconciliation; the patient is in a emergent medical situation where delaying treatment would jeopardize the patients health.: No
--- NOTE | 2024-05-31 11:04 | P.CONOP_ITS ---
Assessment and Plan Assessment and plan (1) Closed intertrochanteric fracture of right hip: Qualifiers: Encounter type: initial encounter Fracture alignment: displaced Q ualified Code(s): S72.141A - Displaced intertrochanteric fracture of right femur, initial encounter for closed fracture Code(s): S72.141A - Displaced intertrochanteric fracture of right femur, initial encounter for closed fracture Status: Acute Assessment and Plan: New patient evaluation for chief complaint right hip fracture. History, physical exam and radiographs reviewed with the patient. Discussed the condition, nature, etiology and course of natural history with the patient. Treatment options including surgical and nonoperative treatment were reviewed. Risks and benefits of each as well as alternatives reviewed. The patient's questions were answered. Conservative treatment ice, Pain control, bed rest. patient desires operative treatment. History of alcohol use. Monitoring for signs of withdrawal. Plan Discussed nonoperative and operative treatment options with the patient. Risks and benefits of each as well as alternatives were reviewed. All of the patient's questions were answered. The risks of surgery reviewed including but not limited to: Neurovascular damage, wound complication, infection, blood clot, pulmonary embolus, stroke, myocardial infarction, and anesthetic risks up to and including . Continued pain and possible dysfunction were explained. Specific risks of the procedure including later recurrence of deformity. No guarantees were offered. If hardware used, discussed risk of failure/ breakage and possible need for removal. If complications occur, the patient understands the need for further treatment, possible further surgery. Patient verbalizes understanding and wishes to proceed. PLAN: Open reduction internal fixation right hip fracture. History of Present Illness HPI Consult date: 05/31/24 Requesting physician: Rafa William MD Chief complaint: Hip Fracture Narrative: 78-year-old gentleman with history of alcohol use fell at home sometime in the last 5-10 days. Pain in right hip which progressively got worse. He presented to the emergency room yesterday and found to have hip fracture. Admitted for further care. He complains of pain in the right hip. Denies any other injury. Denies numbness or tingling. Denies, head, neck or back injury at the time of his fall. Denies loss of consciousness. He states October of 2023 he fell and had a right hip injury which was treated by a chiropractor. Otherwise no other problems. He lives at home alone and is an independent ambulator. Review of Systems 2 Constitutional: Constitutional: Denies fever(s) Eyes: Eyes: Denies blurry vision ENT: Reports Normal hearing present Cardiovascular: Cardiovascular: Denies chest pain and Denies dyspnea Respiratory: Respiratory: Denies dyspnea and Denies wheezing Gastrointestinal: Gastrointestinal: Denies abdominal pain Genitourinary: Genitourinary: Denies urinary urgency Musculoskeletal: Musculoskeletal: Reports as per HPI and Denies numbness Integumentary/Breasts: Skin/Breast: Denies changing lesions and Denies sores Neurologic: Reports Normal hearing present, Denies behavioral changes, Denies confusion, Denies numbness and Denies convulsions Psychiatric: Psychiatric: Denies behavioral changes, Denies confusion and Denies hallucinations Endocrine: Endocrine: Denies heat intolerance Hematologic/Lymphatic: Hematologic/Lymphatic: Denies easy bleeding Allergic/Immunologic: Allergic/Immunologic: Denies wheezing [facility] Past Medical History Medical History (Updated 05/31/24 @ 11:06 by Surendra Somers MD) Closed intertrochanteric fracture of right hip Family History Family History Father Cerebrovascular accident Grandparent Family history of heart disease in male family member before age 55 Social History Social History Smoking status: Former smoker Alcohol intake: current Drinks per week: 100 Substance use: never Do You Feel Safe in your Home?: Yes Lack of Transportation: No Lack of Food: Never True Current Housing: I Have Housing Concerned About Future Housing: No Difficulty Paying Gas/Electric Bills: Decline to Answer Difficulty Paying for Meds: Decline to Answer Currently Unemployed: No Education: Master's Degree or Higher Difficulty w/ Childcare or Family Care: No Spiritual care concerns: No Meds Home Medications and Allergies Home Medications ?Medication ?Instructions ?Recorded ?Confirmed ?Type No Home Medications 05/31/24 05/31/24 History Allergies Allergy/AdvReac Type Severity Reaction Status Date / Time No Known Allergies Allergy Unverified 07/13/11 12:54 Vital Signs Vital Signs - 24 hr 05/30/24 11:08 05/30/24 13:30 05/30/24 14:30 Temperature 97.8 F Pulse Rate 81 65 56 L Respiratory Rate 16 18 16 Blood Pressure 153/92 H 153/115 H 165/89 H Pulse Oximetry 100 97 97 Oxygen Delivery Room Air 05/30/24 16:00 05/30/24 17:30 05/30/24 19:20 Temperature 97.7 F Pulse Rate 61 65 76 Respiratory Rate 15 16 16 Blood Pressure 181/88 H 198/106 H 181/104 H Pulse Oximetry 99 97 98 Oxygen Delivery 05/30/24 20:00 05/31/24 00:00 05/31/24 04:00 Temperature 98.2 F 98.1 F 98.2 F Pulse Rate 56 L 67 63 Respiratory Rate 18 16 16 Blood Pressure 184/80 H 182/79 H 163/97 H Pulse Oximetry 94 96 97 Oxygen Delivery 05/31/24 08:42 05/31/24 09:18 Temperature 98.2 F Pulse Rate 62 Respiratory Rate 18 Blood Pressure 194/88 H Pulse Oximetry 97 96 Oxygen Delivery Room Air Exam 2 Const: General: No confusion Orientation/consciousness: patient oriented x3 and No confusion HENMT: Head: normal to inspection, normocephalic and atraumatic Eyes: Conjunctivae: conjunctivae normal Sclera: sclerae normal Neck: Neck: supple and nontender Chest: Chest palpation & inspection: normal inspection of the chest Resp: Effort & Inspection: normal respiratory effort and no audible wheezes Cardio: Rate: regular rate Rhythm: regular rhythm GI: GI Palp: No abdominal tenderness and Yes Soft to palpation : General: Yes deferred Skin: General skin exam: no rashes or lesions noted Neuro: General: patient oriented x3 and No confusion Extrem: General: capillary refill normal Right upper extremity: normal to inspection Left upper extremity: normal to inspection Right lower extremity: hip/thigh Details: tenderness Location: of the hip Location: laterally and swelling Location: at the hip ( mild), ankle ( able to actively flex and extend ankle) Details: no tenderness and foot Details: normal capillary refill, toes with normal ROM, vascular exam Details: dorsalis pedis pulse present and normal capillary refill and motor-sensory exam Details: light-touch normal Location: in all toes; no tenderness Left lower extremity: normal to inspection, hip/thigh Details: no tenderness and no swelling, lower leg, ankle (no calf tenderness) Details: normal ROM; no tenderness and foot Details: normal capillary refill, vascular exam Details: dorsalis pedis pulse present and normal capillary refill and motor-sensory exam light-touch normal in all toes Psych: Affect: normal affect Results Labs 05/31/24 06:38 05/31/24 06:38 Labs: Abnormal lab results 05/30/24 05/30/24 05/31/24 Range/Units 12:53 20:21 06:38 RBC 3.76 L 3.18 L (4.6-6.20) M/mm3 Hgb 13.5 L 11.3 L (14.0-18.0) g/dL Hct 40.4 L 34.5 L (42.0-52.0) % MCV 107.4 H 108.5 H (80-100) fl MCH 35.9 H 35.5 H (26-34) pg MPV 11.1 H 10.7 H (7.4-10.4) fl Neut % (Auto) 75.9 H (45.5-73.1) % Lymph % (Auto) 12.4 L (18.3-44.2) % [place] % (Auto) 10.6 H 11.6 H (2.6-8.5) % [place] # (Auto) 1.0 H 0.7 H (0.1-0.6) K/mm3 Absolute Neuts (auto) 6.9 H (1.3-6.7) K/mm3 Sodium 135 L (137-145) mmol/L BUN 36 H 25 H D (9-20) mg/dL POC Capillary Glucose 111 H (65-105) mg/dl NT-Pro-B Natriuret Pep 2720 H (19.9-100) pg/mL H & H 05/30/24 05/31/24 Range/Units 12:53 06:38 Hgb 13.5 L 11.3 L (14.0-18.0) g/dL Hct 40.4 L 34.5 L (42.0-52.0) % Coagulation 05/30/24 Range/Units 12:53 INR 0.9 All other labs normal. Diagnostic results Hip x-ray: image reviewed ( Comminuted intertrochanteric fracture right hip)
[2024-05-31 12:21] LABS: Glucose Point of Care 62 mg/dl (65-105)
[2024-05-31 12:38] LABS: Glucose Point of Care 71 mg/dl (65-105)
--- NOTE | 2024-05-31 13:00 | WPDHPUPDATE1 ---
History and Physical Update Update Date/Time: 05/31/24 13:00 History and Physical has been reviewed, including an updated exam of the patient. There are NO changes in the patient's condition. Risks, benefits, and alternatives have been discussed and questions answered. Patient agrees to proceed with procedure.
[2024-05-31] MEDS: DEXTROSE 5%/LACTATED RINGERS 1,000 ML 100 ML IV CONT (13:04)
--- NOTE | 2024-05-31 14:41 | WPDANESEPPF ---
Anes - Initial Pre Proc Eval Procedure: Operation Date: 05/31/24 15:30 Proposed Procedures p Intertrochanteric Nail Right Hip Fracture(Right) - Surendra Somers MD Date/Time: 05/31/24 14:41 Surgeon: Jose Mack MD Pre Op Diagnosis: Hip Fracture Patient Data Age: 78 Gender: M Height: 1.7 m Weight: 61.6 kg Last Vital Signs Temp 98.2 F 05/31/24 08:42 Pulse 62 05/31/24 08:42 Resp 18 05/31/24 08:42 BP 194/88 H 05/31/24 08:42 Pulse Ox 96 05/31/24 09:18 O2 Del Method Room Air 05/31/24 09:18 Allergies Allergy/AdvReac Type Severity Reaction Status Date / Time No Known Allergies Allergy Unverified 07/13/11 12:54 Home Medications ?Medication ?Instructions ?Recorded ?Confirmed ?Type No Home Medications 05/31/24 05/31/24 History Laboratory Tests 05/30/24 05/30/24 05/31/24 20:21 23:43 05:44 WBC RBC Hgb Hct MCV MCH MCHC RDW Plt Count MPV Immature Gran % (Auto) Neut % (Auto) Lymph % (Auto) [place] % (Auto) Eos % (Auto) Baso % (Auto) Lymph # (Auto) [place] # (Auto) Eos # (Auto) Baso # (Auto) Abs Immat Gran (auto) Absolute Neuts (auto) Absolute Nucleated RBC Nucleated RBC % Sodium Potassium Chloride Carbon Dioxide Anion Gap BUN Creatinine Estim Creat Clear Calc Estimated GFR Glucose POC Capillary Glucose 111 H mg/dl 90 mg/dl 72 mg/dl (65-105) (65-105) (65-105) Calcium NT-Pro-B Natriuret Pep Blood Type Antibody Screen 05/31/24 05/31/24 05/31/24 06:38 08:03 12:15 WBC 5.6 K/mm3 (4.5-10.0) RBC 3.18 L M/mm3 (4.6-6.20) Hgb 11.3 L g/dL (14.0-18.0) Hct 34.5 L % (42.0-52.0) MCV 108.5 H fl (80-100) MCH 35.5 H pg (26-34) MCHC 32.8 g/dl (32-36) RDW 12.7 % (11.5-14.5) Plt Count 180 k/mm3 (150-375) MPV 10.7 H fl (7.4-10.4) Immature Gran % (Auto) 0.2 % (0-0.5) Neut % (Auto) 63.9 % (45.5-73.1) Lymph % (Auto) 21.5 % (18.3-44.2) [place] % (Auto) 11.6 H % (2.6-8.5) Eos % (Auto) 2.3 % (0-4.4) Baso % (Auto) 0.5 % (0.2-1.2) Lymph # (Auto) 1.20 K/mm3 (0.9-3.2) [place] # (Auto) 0.7 H K/mm3 (0.1-0.6) Eos # (Auto) 0.1 K/mm3 (0-0.3) Baso # (Auto) 0.0 K/mm3 (0.0-0.1) Abs Immat Gran (auto) 0.01 K/mm3 (0.00-0.031) Absolute Neuts (auto) 3.6 K/mm3 (1.3-6.7) Absolute Nucleated RBC 0.000 K/mm3 (0.0-0.012) Nucleated RBC % 0.0 % (0.0-0.2) Sodium 135 L mmol/L (137-145) Potassium 4.5 mmol/L (3.4-5.0) Chloride 104 mmol/L (98-107) Carbon Dioxide 23 mmol/L (22-30) Anion Gap 8 mmol/L (4-12) BUN 25 H D mg/dL (9-20) Creatinine 1.01 mg/dL (0.7-1.3) Estim Creat Clear Calc 46 ml/min Estimated GFR > 60 (59 - ) Glucose 94 mg/dL (65-110) POC Capillary Glucose 89 mg/dl 62 L mg/dl (65-105) (65-105) Calcium 8.8 mg/dL (8.4-10.2) NT-Pro-B Natriuret Pep 2720 H pg/mL (19.9-100) Blood Type O Positive Antibody Screen Negative 05/31/24 12:35 WBC RBC Hgb Hct MCV MCH MCHC RDW Plt Count MPV Immature Gran % (Auto) Neut % (Auto) Lymph % (Auto) [place] % (Auto) Eos % (Auto) Baso % (Auto) Lymph # (Auto) [place] # (Auto) Eos # (Auto) Baso # (Auto) Abs Immat Gran (auto) Absolute Neuts (auto) Absolute Nucleated RBC Nucleated RBC % Sodium Potassium Chloride Carbon Dioxide Anion Gap BUN Creatinine Estim Creat Clear Calc Estimated GFR Glucose POC Capillary Glucose 71 mg/dl (65-105) Calcium NT-Pro-B Natriuret Pep Blood Type Antibody Screen Patient hx anesthesia problems: none Family hx anesthesia problems: none Results Review: All pre-operative results and documents have been reviewed as part of the pre-operative evaluation. [facility] Past Medical History Medical History Closed intertrochanteric fracture of right hip Family History Family History Father Cerebrovascular accident Grandparent Family history of heart disease in male family member before age 55 Social History Social History Smoking status: Former smoker Alcohol intake: current Drinks per week: 100 Substance use: never Do You Feel Safe in your Home?: Yes Lack of Transportation: No Lack of Food: Never True Current Housing: I Have Housing Concerned About Future Housing: No Difficulty Paying Gas/Electric Bills: Decline to Answer Difficulty Paying for Meds: Decline to Answer Currently Unemployed: No Education: Master's Degree or Higher Difficulty w/ Childcare or Family Care: No Spiritual care concerns: No Anes - Eval Final PreProcedure Day of Procedure 05/31/24 14:41 Patient weight: normal Lungs: normal air movement Airway: Mallampati scale class II Neurological: alert and oriented Last oral intake: >/= 8 hours ASA classification: III Emergent: yes Anesthetic plan: proceed Anesthesia type and monitoring: general LMA and standard monitoring Results Review: All pre-operative results and documents have been reviewed as part of the pre-operative evaluation. Pt very poor historian, difficult to understand in preop area. Has a long hx of ETOH use/abuse, 1 bottle of wine and other mixed drinks daily. Pt reports that he does not drink before 6 pm[address] Withdrawl protocol in place. Informed Consent: The patient's anesthetic plan and its attendant risks and benefits were discussed with the patient/family/POA. Questions were solicited and answers provided to the satisfaction of the patient/family/POA.
[2024-05-31] MEDS: ceFAZolin 2 GM/D5W 50 ML 2 GM/50 ML BAG IVPB ×2 (15:04→23:43)
[2024-05-31] MEDS: TRANEXAMIC ACID 1,000MG/ISO100 1,000 MG/100 ML BAG 200 MG IVPB (15:20)
[2024-05-31] MEDS: BUPIVACAINE/EPINEPHRINE 0.5% 50 ML VIAL 30 ML INFILTRATE (15:48)
[2024-05-31] MEDS: LACTATED RINGERS 1,000 ML 30 ML IV CONT ×2 (16:34→17:32)
--- NOTE | 2024-05-31 16:37 | P.OP_ITS ---
Procedure Note - Detailed Date of Procedure 05/31/24 Pre-op Diagnosis Hip Fracture Post-op Diagnosis Same Procedure Performed Right hip trochanteric nail Surgeon Surendra Somers MD [employer] [facility] Anesthesia General Indications 78-year-old gentleman who fell and sustained right hip intertrochanteric fracture. Desires operative treatment. Description of Procedure After informed consent the operative extremity was marked in the preoperative holding area. Patient received intravenous antibiotics. The patient was taken to the operative room, placed in the supine position, general anesthesia induced by the anesthesia team, and was placed on a fracture table with longitudinal traction applied to the right leg. The non operative leg was extended out of the field. The hip fracture was reduced to near anatomic position and verified with image intensification. A time-out was performed confirming the patient, site of the surgery and plan. The right lower extremity was prepped and draped sterilely from the knee to the iliac crest region using a ChloraPrep skin solution. Incision was made just proximal to greater trochanter down to the subcutaneous tissues. Hemostasis controlled with electrocautery. Blunt dissection through the fascia to the tip of the greater trochanter. A starter awl was placed at the tip of the greater trochanter into the medullary canal of the femur. This was checked with image intensification and was in good position. Intramedullary guide archana positioned. A one-step hand reaming done proximally. Intramedullary canal was reamed with a 12.5 millimeter flexible reamer. Measuring was then performed off of the guide archana. Neck angle selected off of preoperative radiographs temp plating. 125 degree 11 X 360mm Nail opened on the back table and assembled. This was then inserted over the guide archana to the correct depth. Guide archana removed. Anti rotational screw was placed due to the fracture geometry. Using the soft tissue protector and lateral skin incision a drill was placed through the femoral neck in measured. Anti rotation screw placed to the correct depth. Lag screw was then placed with a stab incision over the lateral femur using a 10 blade knife. Blunt dissection down to the lateral side of the bone. Soft tissue protectors placed. Guide pin placed in the center center position of the femoral head and measured. 95 millimeter x 10 millimeter lag screw placed to correct depth and verified with image intensification. Traction then released from the leg and compression of the fracture performed with the external compression device. Proximal locking of the lag screw done. Final image intensification confirm reduction of the fracture and placement of the hardware. Wounds then thoroughly irrigated with antibiotic solution. Fascia repaired with 0 Vicryl interrupted suture. Subcutaneous tissue repaired with 2 Vicryl interrupted suture. Skin approximated with 3-0 Monocryl subcuticular stitch. Sterile dressings applied. Patient then awoke from anesthesia, extubated taken to recovery room stable condition. All sponge, needle and instrument counts correct at the end the case. Implants Arthrex long trochanteric nail, 125?, 11 x 360 mm, 10.5 x 95 mm lag screw, 5 x 85 mm anti rotation screw Estimated Blood Loss 100 Urine Output 650 Drains No Packing No Pathology None sent Complications None Condition Stable Disposition PACU [facility] Billing Surgery - Charge Forward: Surgery Billing ([id number])
[2024-05-31] MEDS: hydrALAZINE HCL 20 MG/ML VIAL IV PUSH (17:00)
[2024-05-31] MEDS: fentaNYL CITRATE INJ (*CRX) 100 MCG/2 ML VIAL 25 MCG IV PUSH ×2 (17:02→17:29)
--- NOTE | 2024-05-31 17:41 | SUR.PHASEI ---
[id number] Somers due to Dressing status, ok to change dressing to gauze with ABD.
[2024-05-31 19:02] LABS: Magnesium 1.4 mg/dL (1.6-2.3)
[2024-05-31] MEDS: FAMOTIDINE 20 MG/2 ML VIAL IV PUSH (21:55)
[2024-05-31] MEDS: ASPIRIN 81 MG ENTERIC TABLET PO (21:55)
[2024-06-01] VITALS (11 sets, daily range): BP systolic 122–160; BP diastolic 53–92; PULSE 74–109; RESP 16–20; TEMP 36.3–37.6; O2SAT 95–98
[2024-06-01 00:18] LABS: Glucose Point of Care 114 mg/dl (65-105)
[2024-06-01] MEDS: HYDROcodone/acetaminophen (*CRX) 5-325 MG TABLET 1 TAB PO ×3 (02:51→21:07)
[2024-06-01 05:38] LABS: Glucose Point of Care 128 mg/dl (65-105)
[2024-06-01] MEDS: ceFAZolin 2 GM/D5W 50 ML 2 GM/50 ML BAG IVPB ×2 (06:26→14:20)
[2024-06-01 08:10] LABS: Hematocrit 34.8 % (42.0-52.0); Hemoglobin 11.6 g/dL (14.0-18.0); Mean Corpuscular HGB Conc 33.3 g/dl (32-36); Mean Corpuscular Hemoglobin 35.8 pg (26-34); Mean Corpuscular Volume 107.4 fl (80-100); Platelet Count Result 174 k/mm3 (150-375); Red Blood Count 3.24 M/mm3 (4.6-6.20); Red Cell Distribution Width 12.8 % (11.5-14.5); White Blood Count 8.5 K/mm3 (4.5-10.0)
[2024-06-01 08:15] LABS: Alanine Aminotransferase 13 U/L (6-50); Albumin Level 2.9 g/dL (3.5-5.1); Alkaline Phosphatase 73 U/L (38-126); Anion Gap 5 mmol/L (4-12); Aspartate Amino Transferase 25 U/L (17-59); Bilirubin,Total 0.8 mg/dL (0.2-1.3); Blood Urea Nitrogen 21 mg/dL (9-20); Calcium 8.4 mg/dL (8.4-10.2); Carbon Dioxide 28 mmol/L (22-30); Chloride 104 mmol/L (98-107); Estimated CRCL calculation 44 ml/min; Estimated Glomerular Filt Rate > 60; Glucose 119 mg/dL (65-110); Potassium 4.7 mmol/L (3.4-5.0); Sodium 137 mmol/L (137-145)
[2024-06-01 08:24] LABS: Glucose Point of Care 136 mg/dl (65-105)
--- NOTE | 2024-06-01 08:33 | P.PNIM_ITS ---
Progress Note: A&P Assessment and Plan (1) Hip fracture: Qualifiers: Encounter type: initial encounter Fracture type: closed Laterality: right Qualified Code(s): S72.001A - Fracture of unspecified part of neck of right femur, initial encounter for closed fracture Code(s): S72.009A - Fracture of unspecified part of neck of unspecified femur, initial encounter for closed fracture Status: Acute Assessment and Plan: * Hip XR: 1. Comminuted intertrochanteric fracture of proximal right femur. 2. Mild right hip osteoarthritis. * check EKG, type and screen, BNP * orthopedics consulted, awaiting formal recs * analgesics p.r.n. * bedrest * NPO at midnight * will need PT/OT eval and treat postoperatively * Post-op DVT prophylaxis 06/01/2024: * Post-op day 1 * Pt/OT pending * ASA (2) ETOH abuse: Code(s): F10.10 - Alcohol abuse, uncomplicated Status: Acute Assessment and Plan: Patient is a daily drinker, last drink was on Tuesday 05/23. Drinks a bottle of scotch and a bottle of wine nightly. Denies hx of withdrawal. * IV fluids * Last drink 7 days ago * Thiamine, folic acid, and multi-vitamin will add post op * PPI daily * librium if indicated * Ativan PRN for seizure activity * CIWA daily * Monitor and replenish electrolytes as needed * Seizure precautions if indicated Plan Code status: Full code per patient DVT prophylaxis: SCD until post-op Stress ulcer prophylaxis: Pepcid PT/OT notes: PT/OT eval post-op Disposition: patient continues admission to the medical unit for further evaluation and treatment of right proximal femur fracture Surgery 05/31/24. PT/ OT evaluation postop for further discharge planning needs. Time Spent With Patient Time with patient: 15 - 25 minutes Subjective Date/time seen: 06/01/24 08:33 Interval history: Patient is a 78-year-old male who was admitted for further evaluation and treatment of right proximal femur fracture 06/01/2024: Assumed Care Patient very lethargic had received [place] and Valium at the same time was able to respond and answer questions but continued to close eyes during assessment. Will hold Valium at this time until patient is more alert. Review of Systems Review of Systems: All systems reviewed & are unremarkable except as noted in HPI and below Exam Narrative: * GENERAL: Alert and oriented x 3. No acute distress. * HEENT: Moist mucous membranes. * LUNGS: Clear to auscultation bilaterally. No accessory muscle use. * CARDIOVASCULAR: Regular rate and rhythm. No murmur. No JVD. S1-S2 * ABDOMEN: Soft, non tenderness and non-distended. No palpable masses. * EXTREMITIES: No edema. Non-tender * SKIN: No rashes or lesions. Skin warm, dry. * NEUROLOGIC: No focal neurological deficits. CN II-XII grossly intact * PSYCHIATRIC: Appropriate mood and affect. Good judgement and insight. Objective Data Vital Signs Vital Signs: Vital Signs - 24 hr 05/31/24 08:42 05/31/24 09:18 05/31/24 14:00 Temperature 98.2 F 98.2 F Pulse Rate 62 64 Pulse Rate [Right Pedal (Dorsalis Pedis)] Respiratory Rate 18 18 Blood Pressure 194/88 H 181/110 H Pulse Oximetry 97 96 99 Oxygen Delivery Room Air Oxygen Flow Rate 05/31/24 16:34 05/31/24 16:50 05/31/24 17:05 Temperature 97.2 F L Pulse Rate 96 91 88 Pulse Rate [Right Pedal (Dorsalis Pedis)] Respiratory Rate 15 15 18 Blood Pressure 186/103 H 201/114 H 172/89 H Pulse Oximetry 96 100 98 Oxygen Delivery Simple Face Mask Simple Face Mask Room Air Oxygen Flow Rate 8 8 05/31/24 17:20 05/31/24 17:35 05/31/24 17:50 Temperature 98.2 F Pulse Rate 106 H 97 96 Pulse Rate [Right Pedal (Dorsalis Pedis)] Respiratory Rate 20 21 H 17 Blood Pressure 158/80 H 159/76 H 160/77 H Pulse Oximetry 97 97 96 Oxygen Delivery Room Air Room Air Room Air Oxygen Flow Rate 05/31/24 18:59 05/31/24 19:59 05/31/24 20:00 Temperature 97.9 F 98.5 F Pulse Rate 89 100 Pulse Rate [Right Pedal (Dorsalis Pedis)] 80 Respiratory Rate 18 18 Blood Pressure 143/81 H 151/72 H Pulse Oximetry 96 98 Oxygen Delivery Oxygen Flow Rate 05/31/24 20:00 05/31/24 23:59 06/01/24 00:00 Temperature 99.5 F Pulse Rate 108 H 95 Pulse Rate [Right Pedal (Dorsalis Pedis)] 78 Respiratory Rate 18 Blood Pressure 149/77 H Pulse Oximetry 97 Oxygen Delivery Oxygen Flow Rate 06/01/24 00:00 06/01/24 03:59 06/01/24 04:00 Temperature 99.7 F H Pulse Rate 79 89 77 Pulse Rate [Right Pedal (Dorsalis Pedis)] Respiratory Rate 18 Blood Pressure 157/53 H Pulse Oximetry 97 Oxygen Delivery Oxygen Flow Rate Intake/Output Intake/Output: Intake & Output 05/29/24 05/30/24 05/31/24 06/01/24 23:59 23:59 23:59 23:59 Intake Total 1600 230 Output Total 2170 350 Balance -570 -120 Meds/Results Medications: Active Medications Generic Name Dose Route Start Last Admin Trade Name Freq PRN Reason Stop Dose Admin Acetaminophen 650 mg 05/30/24 19:11 Acetaminophen 325 Mg Tablet PO Q6H PRN Mild Pain (1-3) or Fever Hydrocodone Bitart/Acetaminophen 1 tab 05/30/24 19:11 06/01/24 02:51 Hydrocodone/Acetaminophen (*Crx) 5-325 Mg Tablet PO 1 tab Q6H PRN Administration Pain Rated 4-6 Aspirin 81 mg 05/31/24 21:00 05/31/24 21:55 Aspirin 81 Mg Enteric Tablet PO 81 mg Q12HR ABIOLA Administration Diazepam 5 mg 05/31/24 18:14 Diazepam (*Crx) 5 Mg Tablet PO Q8H PRN Muscle Spasm Famotidine 20 mg 05/31/24 21:00 05/31/24 21:55 Famotidine 20 Mg/2 Ml Vial IV PUSH 20 mg Q12HR ABIOLA Administration Folic Acid 1 mg 06/01/24 09:00 Folic Acid 1 Mg Tablet PO DAILY [facility] Hydralazine HCl 20 mg 05/31/24 15:22 05/31/24 17:00 Hydralazine Hcl 20 Mg/Ml Vial IV PUSH 20 mg Q6HR PRN Administration hypertension Dextrose/Lactated Ringer's 1,000 mls @ 100 mls/hr 05/31/24 12:20 05/31/24 13:04 Dextrose 5%/Lactated Ringers IV CONT 100 mls/hr .Q10H ABIOLA Administration Cefazolin Sodium 2 gm in 50 mls @ 100 mls/hr 05/31/24 23:00 06/01/24 06:26 Ancef 2 Gm/D5w 50 Ml IVPB 06/01/24 15:29 100 mls/hr Q8H ABIOLA Administration Ibuprofen 800 mg in 200 mls @ 400 mls/hr 05/31/24 18:14 Caldolor 800 Mg/200 Ml IVPB Q6H PRN Breakthrough Pain Rated 1-3 or NPO Morphine Sulfate 2 mg 05/30/24 19:11 Morphine Sulfate (*Crx) 2 Mg/Ml Inj IV PUSH Q4H PRN Pain Rated 7-10 Multivitamins Therapeutic 1 tablet 06/01/24 09:00 Multivitamins Therapeutic Tab (*Bkc) PO QAM [facility] Naloxone HCl 0.1 mg 05/31/24 18:14 Naloxone Hcl 0.4 Mg/Ml Vial IV PUSH Q2M PRN Opiate Reversal Ondansetron HCl 4 mg 05/30/24 19:11 Ondansetron Inj 4 Mg/2 Ml Vial IV PUSH Q6H PRN Nausea And Vomiting Senna/Docusate Sodium 1 tab 05/30/24 19:11 Senna/Docusate Sodium Tablet PO HS PRN Constipation Thiamine HCl 100 mg 06/01/24 09:00 Thiamine Hcl 100 Mg Tablet PO QAM [facility] Radiology Results: ITS Impressions Hip X-Ray 05/30/24 11:52 IMPRESSION: 1. Comminuted intertrochanteric fracture of proximal right femur. 2. Mild right hip osteoarthritis. Chest X-Ray 05/30/24 13:10 IMPRESSION: 1. No acute cardiopulmonary disease. Labs Labs: Laboratory Results - last 24 hr 05/31/24 05/31/24 05/31/24 12:15 12:35 18:30 WBC RBC Hgb Hct MCV MCH MCHC RDW Plt Count MPV Sodium Potassium Chloride Carbon Dioxide Anion Gap BUN Creatinine Estim Creat Clear Calc Estimated GFR Glucose POC Capillary Glucose 62 L 71 Calcium Magnesium 1.4 L Total Bilirubin AST ALT Alkaline Phosphatase Total Protein Albumin 05/31/24 06/01/24 06/01/24 23:46 05:36 07:50 WBC 8.5 RBC 3.24 L Hgb 11.6 L Hct 34.8 L MCV 107.4 H MCH 35.8 H MCHC 33.3 RDW 12.8 Plt Count 174 MPV 11.0 H Sodium 137 Potassium 4.7 Chloride 104 Carbon Dioxide 28 Anion Gap 5 BUN 21 H Creatinine 1.06 Estim Creat Clear Calc 44 Estimated GFR > 60 Glucose 119 H POC Capillary Glucose 114 H 128 H Calcium 8.4 Magnesium Total Bilirubin 0.8 AST 25 ALT 13 Alkaline Phosphatase 73 Total Protein 6.0 L Albumin 2.9 L 06/01/24 08:11 WBC RBC Hgb Hct MCV MCH MCHC RDW Plt Count MPV Sodium Potassium Chloride Carbon Dioxide Anion Gap BUN Creatinine Estim Creat Clear Calc Estimated GFR Glucose POC Capillary Glucose 136 H Calcium Magnesium Total Bilirubin AST ALT Alkaline Phosphatase Total Protein Albumin Quality VTE Prophylaxis VTE prophylaxis: mechanical ordered -Patient's previous records reviewed on admission -ER notes reviewed in detail on admission -discussed all findings and current treatment plan with patient/Family/POA -Consultations reviewed for recommendations -Patient's disposition for safe discharge discussed with case maker Dictation performed by [employer] direct speech recognition software, therefore lacquer mixer variants and typographical errors may occur. Hospitalist MIPS Advance Care Plan I have confirmed that the patient's Advanced Care Plan is present, code status is documented, or surrogate decision maker is listed in patient medical record.: Yes Medication Reconciliation I have utilized all available resources to obtain, update and review the patients current medications (includes all prescriptions, OTC, herbals, cannabis, and nutritional supplements).: Yes The patient is not eligible for med reconciliation; the patient is in a emergent medical situation where delaying treatment would jeopardize the patients health.: No
[2024-06-01] MEDS: ASPIRIN 81 MG ENTERIC TABLET PO ×2 (09:08→20:45)
[2024-06-01] MEDS: FAMOTIDINE 20 MG/2 ML VIAL IV PUSH ×2 (09:08→20:45)
[2024-06-01] MEDS: FOLIC ACID 1 MG TABLET PO (09:08)
[2024-06-01] MEDS: diazePAM (*CRX) 5 MG TABLET PO (09:08)
[2024-06-01] MEDS: MULTIVITAMINS THERAPEUTIC TAB (*BKC) 1 TABLET PO (09:08)
[2024-06-01] MEDS: THIAMINE HCL 100 MG TABLET PO (09:08)
--- NOTE | 2024-06-01 11:48 | PM.PNORT ---
Progress Note: A&P Assessment and Plan (1) Closed intertrochanteric fracture of right hip: Qualifiers: Encounter type: subsequent encounter Fracture alignment: displaced Fracture healing: with routine healing Qualified Code(s): S72.141D - Displaced intertrochanteric fracture of right femur, subsequent encounter for closed fracture with routine healing Code(s): S72.141A - Displaced intertrochanteric fracture of right femur, initial encounter for closed fracture Status: Acute Assessment and Plan: Postoperative day 1 right hip trochanteric nail. Reviewed operative treatment with the patient. He is up ambulating with therapy. Some pain right hip. We discussed pain control. DVT prophylaxis. PT/OT. Disposition when medically stable. Subjective Subjective Date/Time Seen: 06/01/24 11:48 Post Op day: 1 Principal diagnosis: Right intertrochanteric hip fracture Interval history: Patient resting comfortably. Awake and alert. Less confused today. Oriented to person, place and time. Complains of minimal pain right hip. Up in bathroom with BM this morning. Now in chair, comfortable. Exam Const: General: comfortable; No acute distress Resp: Effort & Inspection: normal respiratory effort and no audible wheezes Extrem: Right lower extremity: lower leg ( Negative Homans sign), ankle Details: normal ROM ( dorsiflexion and plantar flexion intact) and foot Details: vascular exam Details: dorsalis pedis pulse present and normal capillary refill, tendon exam Details: active flexion normal and active extension normal and motor-sensory exam Details: light-touch normal Location: in all toes; no edema Left lower extremity: normal to inspection, ankle Details: normal ROM and foot Details: vascular exam Details: dorsalis pedis pulse present and normal capillary refill and motor-sensory exam light-touch normal in all toes; no edema Objective Data Vital Signs Vital Signs: Vital Signs - 24 hr 05/31/24 14:00 05/31/24 16:34 05/31/24 16:50 Temperature 98.2 F 97.2 F L Pulse Rate 64 96 91 Pulse Rate [Right Pedal (Dorsalis Pedis)] Respiratory Rate 18 15 15 Blood Pressure 181/110 H 186/103 H 201/114 H Pulse Oximetry 99 96 100 Oxygen Delivery Simple Face Mask Simple Face Mask Oxygen Flow Rate 8 8 05/31/24 17:05 05/31/24 17:20 05/31/24 17:35 Temperature 98.2 F Pulse Rate 88 106 H 97 Pulse Rate [Right Pedal (Dorsalis Pedis)] Respiratory Rate 18 20 21 H Blood Pressure 172/89 H 158/80 H 159/76 H Pulse Oximetry 98 97 97 Oxygen Delivery Room Air Room Air Room Air Oxygen Flow Rate 05/31/24 17:50 05/31/24 18:59 05/31/24 19:59 Temperature 97.9 F 98.5 F Pulse Rate 96 89 100 Pulse Rate [Right Pedal (Dorsalis Pedis)] Respiratory Rate 17 18 18 Blood Pressure 160/77 H 143/81 H 151/72 H Pulse Oximetry 96 96 98 Oxygen Delivery Room Air Oxygen Flow Rate 05/31/24 20:00 05/31/24 20:00 05/31/24 23:59 Temperature 99.5 F Pulse Rate 108 H 95 Pulse Rate [Right Pedal (Dorsalis Pedis)] 80 Respiratory Rate 18 Blood Pressure 149/77 H Pulse Oximetry 97 Oxygen Delivery Oxygen Flow Rate 06/01/24 00:00 06/01/24 00:00 06/01/24 03:59 Temperature 99.7 F H Pulse Rate 79 89 Pulse Rate [Right Pedal (Dorsalis Pedis)] 78 Respiratory Rate 18 Blood Pressure 157/53 H Pulse Oximetry 97 Oxygen Delivery Oxygen Flow Rate 06/01/24 04:00 06/01/24 08:30 06/01/24 08:46 Temperature Pulse Rate 77 Pulse Rate [Right Pedal (Dorsalis Pedis)] Respiratory Rate Blood Pressure Pulse Oximetry Oxygen Delivery Room Air Room Air Oxygen Flow Rate 06/01/24 09:30 Temperature 97.3 F L Pulse Rate 109 H Pulse Rate [Right Pedal (Dorsalis Pedis)] Respiratory Rate 18 Blood Pressure 135/92 H Pulse Oximetry 95 Oxygen Delivery Oxygen Flow Rate Intake/Output Intake/Output: Intake & Output 05/29/24 05/30/24 05/31/24 06/01/24 23:59 23:59 23:59 23:59 Intake Total 1600 350 Output Total 2170 350 Balance -570 0 Meds/Results Medications: Active Medications Generic Name Dose Route Start Last Admin Trade Name Freq PRN Reason Stop Dose Admin Acetaminophen 650 mg 05/30/24 19:11 Acetaminophen 325 Mg Tablet PO Q6H PRN Mild Pain (1-3) or Fever Hydrocodone Bitart/Acetaminophen 1 tab 05/30/24 19:11 06/01/24 09:08 Hydrocodone/Acetaminophen (*Crx) 5-325 Mg Tablet PO 1 tab Q6H PRN Administration Pain Rated 4-6 Aspirin 81 mg 05/31/24 21:00 06/01/24 09:08 Aspirin 81 Mg Enteric Tablet PO 81 mg Q12HR ABIOLA Administration Diazepam 5 mg 05/31/24 18:14 06/01/24 09:08 Diazepam (*Crx) 5 Mg Tablet PO 5 mg Q8H PRN Administration Muscle Spasm Famotidine 20 mg 05/31/24 21:00 06/01/24 09:08 Famotidine 20 Mg/2 Ml Vial IV PUSH 20 mg Q12HR ABIOLA Administration Folic Acid 1 mg 06/01/24 09:00 06/01/24 09:08 Folic Acid 1 Mg Tablet PO 1 mg DAILY ABIOLA Administration Hydralazine HCl 20 mg 05/31/24 15:22 05/31/24 17:00 Hydralazine Hcl 20 Mg/Ml Vial IV PUSH 20 mg Q6HR PRN Administration hypertension Dextrose/Lactated Ringer's 1,000 mls @ 100 mls/hr 05/31/24 12:20 05/31/24 13:04 Dextrose 5%/Lactated Ringers IV CONT 100 mls/hr .Q10H ABIOLA Administration Cefazolin Sodium 2 gm in 50 mls @ 100 mls/hr 05/31/24 23:00 06/01/24 06:26 Ancef 2 Gm/D5w 50 Ml IVPB 06/01/24 15:29 100 mls/hr Q8H ABIOLA Administration Ibuprofen 800 mg in 200 mls @ 400 mls/hr 05/31/24 18:14 Caldolor 800 Mg/200 Ml IVPB Q6H PRN Breakthrough Pain Rated 1-3 or NPO Morphine Sulfate 2 mg 05/30/24 19:11 Morphine Sulfate (*Crx) 2 Mg/Ml Inj IV PUSH Q4H PRN Pain Rated 7-10 Multivitamins Therapeutic 1 tablet 06/01/24 09:00 06/01/24 09:08 Multivitamins Therapeutic Tab (*Bkc) PO 1 tablet QAM [facility] Administration Naloxone HCl 0.1 mg 05/31/24 18:14 Naloxone Hcl 0.4 Mg/Ml Vial IV PUSH Q2M PRN Opiate Reversal Ondansetron HCl 4 mg 05/30/24 19:11 Ondansetron Inj 4 Mg/2 Ml Vial IV PUSH Q6H PRN Nausea And Vomiting Senna/Docusate Sodium 1 tab 05/30/24 19:11 Senna/Docusate Sodium Tablet PO HS PRN Constipation Thiamine HCl 100 mg 06/01/24 09:00 06/01/24 09:08 Thiamine Hcl 100 Mg Tablet PO 100 mg QAM ABIOLA Administration Radiology Results: ITS Impressions Hip X-Ray 05/30/24 11:52 IMPRESSION: 1. Comminuted intertrochanteric fracture of proximal right femur. 2. Mild right hip osteoarthritis. Chest X-Ray 05/30/24 13:10 IMPRESSION: 1. No acute cardiopulmonary disease. Labs Labs: Laboratory Results - last 24 hr 05/31/24 05/31/24 05/31/24 12:15 12:35 18:30 WBC RBC Hgb Hct MCV MCH MCHC RDW Plt Count MPV Sodium Potassium Chloride Carbon Dioxide Anion Gap BUN Creatinine Estim Creat Clear Calc Estimated GFR Glucose POC Capillary Glucose 62 L 71 Calcium Magnesium 1.4 L Total Bilirubin AST ALT Alkaline Phosphatase Total Protein Albumin 05/31/24 06/01/24 06/01/24 23:46 05:36 07:50 WBC 8.5 RBC 3.24 L Hgb 11.6 L Hct 34.8 L MCV 107.4 H MCH 35.8 H MCHC 33.3 RDW 12.8 Plt Count 174 MPV 11.0 H Sodium 137 Potassium 4.7 Chloride 104 Carbon Dioxide 28 Anion Gap 5 BUN 21 H Creatinine 1.06 Estim Creat Clear Calc 44 Estimated GFR > 60 Glucose 119 H POC Capillary Glucose 114 H 128 H Calcium 8.4 Magnesium Total Bilirubin 0.8 AST 25 ALT 13 Alkaline Phosphatase 73 Total Protein 6.0 L Albumin 2.9 L 06/01/24 08:11 WBC RBC Hgb Hct MCV MCH MCHC RDW Plt Count MPV Sodium Potassium Chloride Carbon Dioxide Anion Gap BUN Creatinine Estim Creat Clear Calc Estimated GFR Glucose POC Capillary Glucose 136 H Calcium Magnesium Total Bilirubin AST ALT Alkaline Phosphatase Total Protein Albumin
[2024-06-01 11:59] LABS: Glucose Point of Care 140 mg/dl (65-105)
[2024-06-01 17:30] LABS: Glucose Point of Care 104 mg/dl (65-105)
[2024-06-02] VITALS (10 sets, daily range): BP systolic 100–167; BP diastolic 56–79; PULSE 58–113; RESP 18–20; TEMP 36.1–37.1; O2SAT 95–97
[2024-06-02 00:12] LABS: Glucose Point of Care 108 mg/dl (65-105)
[2024-06-02 06:37] LABS: Glucose Point of Care 80 mg/dl (65-105)
[2024-06-02 07:15] LABS: Hematocrit 32.9 % (42.0-52.0); Mean Corpuscular HGB Conc 33.4 g/dl (32-36); Mean Corpuscular Hemoglobin 35.4 pg (26-34); Mean Corpuscular Volume 105.8 fl (80-100); Mean Platelet Volume 11.1 fl (7.4-10.4); Platelet Count Result 174 k/mm3 (150-375); Red Blood Count 3.11 M/mm3 (4.6-6.20); Red Cell Distribution Width 12.7 % (11.5-14.5); White Blood Count 8.6 K/mm3 (4.5-10.0)
[2024-06-02 08:05] LABS: Alanine Aminotransferase 7 U/L (6-50); Albumin Level 2.6 g/dL (3.5-5.1); Alkaline Phosphatase 72 U/L (38-126); Anion Gap 4 mmol/L (4-12); Aspartate Amino Transferase 22 U/L (17-59); Bilirubin,Total 0.9 mg/dL (0.2-1.3); Blood Urea Nitrogen 18 mg/dL (9-20); Calcium 8.3 mg/dL (8.4-10.2); Carbon Dioxide 30 mmol/L (22-30); Chloride 102 mmol/L (98-107); Estimated CRCL calculation 38 ml/min; Estimated Glomerular Filt Rate 56; Glucose 82 mg/dL (65-110); Sodium 136 mmol/L (137-145)
[2024-06-02] MEDS: FOLIC ACID 1 MG TABLET PO (09:22)
[2024-06-02] MEDS: MULTIVITAMINS THERAPEUTIC TAB (*BKC) 1 TABLET PO (09:22)
[2024-06-02] MEDS: ASPIRIN 81 MG ENTERIC TABLET PO ×2 (09:22→20:33)
[2024-06-02] MEDS: THIAMINE HCL 100 MG TABLET PO (09:22)
[2024-06-02] MEDS: FAMOTIDINE 20 MG/2 ML VIAL IV PUSH ×2 (09:23→20:33)
--- NOTE | 2024-06-02 09:26 | P.PNOP_ITS ---
Progress Note: A&P Assessment and Plan (1) Closed intertrochanteric fracture of right hip: Qualifiers: Encounter type: subsequent encounter Fracture alignment: displaced Fracture healing: with routine healing Qualified Code(s): S72.141D - Displaced intertrochanteric fracture of right femur, subsequent encounter for closed fracture with routine healing Code(s): S72.141A - Displaced intertrochanteric fracture of right femur, initial encounter for closed fracture Status: Acute Assessment and Plan: POD #2: Right Hip trochanteric nail Continue PT/OT. WBAT. Walker. HIGH FALL RISK. Continue pain control. Ice Hip. Protect skin. DVT prophylaxis with Aspirin. Remove lira catheter. SCDs. Incentive Spirometry Use reviewed. Monitor Dressing. Change prior to discharge. Bowel Regimen. Dispo: JAVIER pending progress with PT/OT Time Spent With Patient Time: Reviewed history, exam, radiographs and current labs with attending MD and covering surgeon, Dr. Somers, who agrees with current plan as indicated above. No further recommendations from Dr. Somers at this time. Subjective Subjective Date/Time Seen: 06/02/24 09:26 Post Op day: 2 Principal diagnosis: Right intertrochanteric hip fracture Interval history: POD #2: Right Hip Trochanteric Nail Patient doing well. Reports pain with ambulation. Otherwise, no concerns. A&Ox3. Review of Systems Review of Systems: All systems reviewed & are unremarkable except as noted in HPI and below Exam Const: General: comfortable; No acute distress Resp: Effort & Inspection: normal respiratory effort and no audible wheezes Extrem: Right lower extremity: lower leg ( Negative Homans sign), ankle Details: normal ROM ( dorsiflexion and plantar flexion intact) and foot Details: vascular exam Details: dorsalis pedis pulse present and normal capillary refill, tendon exam Details: active flexion normal and active extension normal and caden r-sensory exam Details: light-touch normal Location: in all toes; no edema Left lower extremity: normal to inspection, ankle Details: normal ROM and foot Details: vascular exam Details: dorsalis pedis pulse present and normal capillary refill and motor-sensory exam light-touch normal in all toes; no edema Objective Data Vital Signs Vital Signs: Vital Signs - 24 hr 06/01/24 09:30 06/01/24 12:00 06/01/24 12:00 Temperature 36.3 C L Pulse Rate 109 H 92 Pulse Rate [Right Pedal (Dorsalis Pedis)] 77 Respiratory Rate 18 Blood Pressure 135/92 H Pulse Oximetry 95 Oxygen Delivery 06/01/24 13:32 06/01/24 16:00 06/01/24 16:00 Temperature 36.6 C Pulse Rate 90 92 Pulse Rate [Right Pedal (Dorsalis Pedis)] 86 Respiratory Rate 16 Blood Pressure 142/90 H Pulse Oximetry 96 Oxygen Delivery 06/01/24 18:00 06/01/24 20:00 06/01/24 20:00 Temperature 36.8 C Pulse Rate 96 96 Pulse Rate [Right Pedal (Dorsalis Pedis)] 74 Respiratory Rate 18 18 Blood Pressure 122/71 Pulse Oximetry 98 98 Oxygen Delivery Room Air 06/01/24 20:00 06/01/24 20:55 06/02/24 00:00 Temperature 37.1 C Pulse Rate 77 75 Pulse Rate [Right Pedal (Dorsalis Pedis)] 64 Respiratory Rate 20 Blood Pressure 160/79 H Pulse Oximetry 96 Oxygen Delivery 06/02/24 00:00 06/02/24 04:00 06/02/24 04:00 Temperature Pulse Rate 66 58 L Pulse Rate [Right Pedal (Dorsalis Pedis)] 58 L Respiratory Rate Blood Pressure Pulse Oximetry Oxygen Delivery 06/02/24 05:15 Temperature 36.9 C Pulse Rate 65 Pulse Rate [Right Pedal (Dorsalis Pedis)] Respiratory Rate 18 Blood Pressure 167/79 H Pulse Oximetry 96 Oxygen Delivery Intake/Output Intake/Output: Intake & Output 05/30/24 05/31/24 06/01/24 06/02/24 23:59 23:59 23:59 23:59 Intake Total 1600 1280 200 Output Total 2170 850 1300 Balance -570 430 -1100 Meds/Results Medications: Active Medications Generic Name Dose Route Start Last Admin Trade Name Freq PRN Reason Stop Dose Admin Acetaminophen 650 mg 05/30/24 19:11 Acetaminophen 325 Mg Tablet PO Q6H PRN Mild Pain (1-3) or Fever Hydrocodone Bitart/Acetaminophen 1 tab 05/30/24 19:11 06/01/24 21:07 Hydrocodone/Acetaminophen (*Crx) 5-325 Mg Tablet PO 1 tab Q6H PRN Administration Pain Rated 4-6 Aspirin 81 mg 05/31/24 21:00 06/02/24 09:22 Aspirin 81 Mg Enteric Tablet PO 81 mg Q12HR [facility]OLA Administration Diazepam 5 mg 05/31/24 18:14 06/01/24 09:08 Diazepam (*Crx) 5 Mg Tablet PO 5 mg Q8H PRN Administration Muscle Spasm Famotidine 20 mg 05/31/24 21:00 06/02/24 09:23 Famotidine 20 Mg/2 Ml Vial IV PUSH 20 mg Q12HR ABIOLA Administration Folic Acid 1 mg 06/01/24 09:00 06/02/24 09:22 Folic Acid 1 Mg Tablet PO 1 mg DAILY ABIOLA Administration Hydralazine HCl 20 mg 05/31/24 15:22 05/31/24 17:00 Hydralazine Hcl 20 Mg/Ml Vial IV PUSH 20 mg Q6HR PRN Administration hypertension Ibuprofen 800 mg in 200 mls @ 400 mls/hr 05/31/24 18:14 Caldolor 800 Mg/200 Ml IVPB Q6H PRN Breakthrough Pain Rated 1-3 or NPO Morphine Sulfate 2 mg 05/30/24 19:11 Morphine Sulfate (*Crx) 2 Mg/Ml Inj IV PUSH Q4H PRN Pain Rated 7-10 Multivitamins Therapeutic 1 tablet 06/01/24 09:00 06/02/24 09:22 Multivitamins Therapeutic Tab (*Bkc) PO 1 tablet QAM [facility] Administration Naloxone HCl 0.1 mg 05/31/24 18:14 Naloxone Hcl 0.4 Mg/Ml Vial IV PUSH Q2M PRN Opiate Reversal Ondansetron HCl 4 mg 05/30/24 19:11 Ondansetron Inj 4 Mg/2 Ml Vial IV PUSH Q6H PRN Nausea And Vomiting Senna/Docusate Sodium 1 tab 05/30/24 19:11 Senna/Docusate Sodium Tablet PO HS PRN Constipation Thiamine HCl 100 mg 06/01/24 09:00 06/02/24 09:22 Thiamine Hcl 100 Mg Tablet PO 100 mg QAM [facility] Administration Radiology Results: ITS Impressions Hip X-Ray 05/30/24 11:52 IMPRESSION: 1. Comminuted intertrochanteric fracture of proximal right femur. 2. Mild right hip osteoarthritis. Chest X-Ray 05/30/24 13:10 IMPRESSION: 1. No acute cardiopulmonary disease. Fluoroscopy 06/02/24 08:10 IMPRESSION: 1. Intertrochanteric fracture of proximal right femur status post open reduction internal fixation. Labs Labs: Laboratory Results - last 24 hr 06/01/24 06/01/24 06/02/24 11:50 16:50 00:10 WBC RBC Hgb Hct MCV MCH MCHC RDW Plt Count MPV Sodium Potassium Chloride Carbon Dioxide Anion Gap BUN Creatinine Estim Creat Clear Calc Estimated GFR Glucose POC Capillary Glucose 140 H 104 108 H Calcium Total Bilirubin AST ALT Alkaline Phosphatase Total Protein Albumin 06/02/24 06/02/24 05:22 06:52 WBC 8.6 RBC 3.11 L Hgb 11.0 L Hct 32.9 L MCV 105.8 H MCH 35.4 H MCHC 33.4 RDW 12.7 Plt Count 174 MPV 11.1 H Sodium 136 L Potassium 4.0 Chloride 102 Carbon Dioxide 30 Anion Gap 4 BUN 18 Creatinine 1.25 Estim Creat Clear Calc 38 Estimated GFR 56 L Glucose 82 POC Capillary Glucose 80 Calcium 8.3 L Total Bilirubin 0.9 AST 22 ALT 7 Alkaline Phosphatase 72 Total Protein 5.0 L Albumin 2.6 L
[2024-06-02] MEDS: HYDROcodone/acetaminophen (*CRX) 5-325 MG TABLET 1 TAB PO ×2 (09:33→20:33)
[2024-06-02 11:22] LABS: Glucose Point of Care 102 mg/dl (65-105)
--- NOTE | 2024-06-02 12:40 | P.PNIM_ITS ---
Progress Note: A&P Assessment and Plan (1) Hip fracture: Qualifiers: Encounter type: initial encounter Fracture type: closed Laterality: right Qualified Code(s): S72.001A - Fracture of unspecified part of neck of right femur, initial encounter for closed fracture Code(s): S72.009A - Fracture of unspecified part of neck of unspecified femur, initial encounter for closed fracture Status: Acute Assessment and Plan: * Hip XR: 1. Comminuted intertrochanteric fracture of proximal right femur. 2. Mild right hip osteoarthritis. * check EKG, type and screen, BNP * orthopedics consulted, awaiting formal recs * analgesics p.r.n. * bedrest * NPO at midnight * will need PT/OT eval and treat postoperatively * Post-op DVT prophylaxis 06/01/2024: * Post-op day 1 * Pt/OT pending * ASA 06/02/24: * Post op day 2 * PT/OT * ASA * pain regimen (2) ETOH abuse: Code(s): F10.10 - Alcohol abuse, uncomplicated Status: Acute Assessment and Plan: Patient is a daily drinker, last drink was on Tuesday 05/23. Drinks a bottle of scotch and a bottle of wine nightly. Denies hx of withdrawal. * IV fluids * Last drink on 05/23 * Thiamine, folic acid, and multi-vitamin will add post op * PPI daily * librium if indicated * Ativan PRN for seizure activity * CIWA daily * Monitor and replenish electrolytes as needed * Seizure precautions if indicated Plan Code status: Full code per patient DVT prophylaxis: SCD until post-op Stress ulcer prophylaxis: Pepcid PT/OT notes: PT/OT eval post-op Disposition: patient continues admission to the medical unit for further evaluation and treatment of right proximal femur fracture Surgery 05/31/24. PT/ OT evaluation postop for further discharge planning needs. Subjective Date/time seen: 06/02/24 12:40 Interval history: Patient sitting up in chair. Patient reports pain in right hip is a 3 sitting and a 10 with activity, pain is constant, and sharp. Patient denies chest pain, palpitations, headache, dizziness, nausea, or vomiting. Review of Systems Review of Systems: All systems reviewed & are unremarkable except as noted in HPI and below Exam Const: General: no acute distress and uncomfortable Resp: Effort & Inspection: normal respiratory effort Auscultation: clear to auscultation bilaterally Cardio: Rate: tachycardic Other: Telemetry ST 111 GI: GI Palp: Yes Soft to palpation Auscultation: normal bowel sounds Skin: Other: Dressing intact to right hips surgical incision, no drainage noted on dressing. No redness or swelling noted. Neuro: Speech: normal speech Extrem: General: no pedal edema Psych: Mental Status: mental status grossly normal Affect: normal affect Objective Data Vital Signs Vital Signs: Vital Signs - 24 hr 06/01/24 13:32 06/01/24 16:00 06/01/24 16:00 Temperature 97.9 F Pulse Rate 90 92 Pulse Rate [Right Pedal (Dorsalis Pedis)] 86 Respiratory Rate 16 Blood Pressure 142/90 H Pulse Oximetry 96 Oxygen Delivery 06/01/24 18:00 06/01/24 20:00 06/01/24 20:00 Temperature 98.2 F Pulse Rate 96 96 Pulse Rate [Right Pedal (Dorsalis Pedis)] 74 Respiratory Rate 18 18 Blood Pressure 122/71 Pulse Oximetry 98 98 Oxygen Delivery Room Air 06/01/24 20:00 06/01/24 20:55 06/02/24 00:00 Temperature 98.7 F Pulse Rate 77 75 Pulse Rate [Right Pedal (Dorsalis Pedis)] 64 Respiratory Rate 20 Blood Pressure 160/79 H Pulse Oximetry 96 Oxygen Delivery 06/02/24 00:00 06/02/24 04:00 06/02/24 04:00 Temperature Pulse Rate 66 58 L Pulse Rate [Right Pedal (Dorsalis Pedis)] 58 L Respiratory Rate Blood Pressure Pulse Oximetry Oxygen Delivery 06/02/24 05:15 06/02/24 08:00 Temperature 98.4 F Pulse Rate 65 103 H Pulse Rate [Right Pedal (Dorsalis Pedis)] Respiratory Rate 18 Blood Pressure 167/79 H Pulse Oximetry 96 Oxygen Delivery Intake/Output Intake/Output: Intake & Output 05/30/24 05/31/24 06/01/24 06/02/24 23:59 23:59 23:59 23:59 Intake Total 1600 1280 200 Output Total 2170 850 1300 Balance -570 430 -1100 Meds/Results Medications: Active Medications Generic Name Dose Route Start Last Admin Trade Name Freq PRN Reason Stop Dose Admin Acetaminophen 650 mg 05/30/24 19:11 Acetaminophen 325 Mg Tablet PO Q6H PRN Mild Pain (1-3) or Fever Hydrocodone Bitart/Acetaminophen 1 tab 05/30/24 19:11 06/02/24 09:33 Hydrocodone/Acetaminophen (*Crx) 5-325 Mg Tablet PO 1 tab Q6H PRN Administration Pain Rated 4-6 Aspirin 81 mg 05/31/24 21:00 06/02/24 09:22 Aspirin 81 Mg Enteric Tablet PO 81 mg Q12HR ABIOLA Administration Diazepam 5 mg 05/31/24 18:14 06/01/24 09:08 Diazepam (*Crx) 5 Mg Tablet PO 5 mg Q8H PRN Administration Muscle Spasm Famotidine 20 mg 05/31/24 21:00 06/02/24 09:23 Famotidine 20 Mg/2 Ml Vial IV PUSH 20 mg Q12HR [facility]OLA Administration Folic Acid 1 mg 06/01/24 09:00 06/02/24 09:22 Folic Acid 1 Mg Tablet PO 1 mg DAILY [facility] Administration Hydralazine HCl 20 mg 05/31/24 15:22 05/31/24 17:00 Hydralazine Hcl 20 Mg/Ml Vial IV PUSH 20 mg Q6HR PRN Administration hypertension Ibuprofen 800 mg in 200 mls @ 400 mls/hr 05/31/24 18:14 Caldolor 800 Mg/200 Ml IVPB Q6H PRN Breakthrough Pain Rated 1-3 or NPO Morphine Sulfate 2 mg 05/30/24 19:11 Morphine Sulfate (*Crx) 2 Mg/Ml Inj IV PUSH Q4H PRN Pain Rated 7-10 Multivitamins Therapeutic 1 tablet 06/01/24 09:00 06/02/24 09:22 Multivitamins Therapeutic Tab (*Bkc) PO 1 tablet QAM [facility] Administration Naloxone HCl 0.1 mg 05/31/24 18:14 Naloxone Hcl 0.4 Mg/Ml Vial IV PUSH Q2M PRN Opiate Reversal Ondansetron HCl 4 mg 05/30/24 19:11 Ondansetron Inj 4 Mg/2 Ml Vial IV PUSH Q6H PRN Nausea And Vomiting Senna/Docusate Sodium 1 tab 05/30/24 19:11 Senna/Docusate Sodium Tablet PO HS PRN Constipation Thiamine HCl 100 mg 06/01/24 09:00 06/02/24 09:22 Thiamine Hcl 100 Mg Tablet PO 100 mg QAM [facility] Administration Radiology Results: ITS Impressions Hip X-Ray 05/30/24 11:52 IMPRESSION: 1. Comminuted intertrochanteric fracture of proximal right femur. 2. Mild right hip osteoarthritis. Chest X-Ray 05/30/24 13:10 IMPRESSION: 1. No acute cardiopulmonary disease. Fluoroscopy 06/02/24 08:10 IMPRESSION: 1. Intertrochanteric fracture of proximal right femur status post open reduction internal fixation. Labs Labs: Laboratory Results - last 24 hr 06/01/24 06/02/24 06/02/24 16:50 00:10 05:22 WBC RBC Hgb Hct MCV MCH MCHC RDW Plt Count MPV Sodium Potassium Chloride Carbon Dioxide Anion Gap BUN Creatinine Estim Creat Clear Calc Estimated GFR Glucose POC Capillary Glucose 104 108 H 80 Calcium Total Bilirubin AST ALT Alkaline Phosphatase Total Protein Albumin 06/02/24 06/02/24 06:52 11:15 WBC 8.6 RBC 3.11 L Hgb 11.0 L Hct 32.9 L MCV 105.8 H MCH 35.4 H MCHC 33.4 RDW 12.7 Plt Count 174 MPV 11.1 H Sodium 136 L Potassium 4.0 Chloride 102 Carbon Dioxide 30 Anion Gap 4 BUN 18 Creatinine 1.25 Estim Creat Clear Calc 38 Estimated GFR 56 L Glucose 82 POC Capillary Glucose 102 Calcium 8.3 L Total Bilirubin 0.9 AST 22 ALT 7 Alkaline Phosphatase 72 Total Protein 5.0 L Albumin 2.6 L Quality VTE Prophylaxis VTE prophylaxis: mechanical ordered
[2024-06-02 18:29] LABS: Glucose Point of Care 102 mg/dl (65-105)
[2024-06-03] VITALS (11 sets, daily range): BP systolic 108–169; BP diastolic 65–84; PULSE 62–100; RESP 16–20; TEMP 36.8–37; O2SAT 94–100
[2024-06-03 01:49] LABS: Glucose Point of Care 94 mg/dl (65-105)
[2024-06-03 05:17] LABS: Glucose Point of Care 87 mg/dl (65-105)
[2024-06-03 06:35] LABS: Hemoglobin 11.2 g/dL (14.0-18.0); Mean Corpuscular HGB Conc 32.9 g/dl (32-36); Mean Corpuscular Hemoglobin 35.2 pg (26-34); Mean Corpuscular Volume 106.9 fl (80-100); Mean Platelet Volume 11.5 fl (7.4-10.4); Platelet Count Result 173 k/mm3 (150-375); Red Blood Count 3.18 M/mm3 (4.6-6.20); Red Cell Distribution Width 12.3 % (11.5-14.5); White Blood Count 8.3 K/mm3 (4.5-10.0)
[2024-06-03 06:51] LABS: Alanine Aminotransferase 8 U/L (6-50); Albumin Level 2.7 g/dL (3.5-5.1); Alkaline Phosphatase 78 U/L (38-126); Anion Gap 7 mmol/L (4-12); Aspartate Amino Transferase 23 U/L (17-59); Blood Urea Nitrogen 24 mg/dL (9-20); Calcium 8.5 mg/dL (8.4-10.2); Carbon Dioxide 26 mmol/L (22-30); Chloride 102 mmol/L (98-107); Estimated CRCL calculation 32 ml/min; Estimated Glomerular Filt Rate 46; Glucose 87 mg/dL (65-110); Potassium 3.8 mmol/L (3.4-5.0); Sodium 135 mmol/L (137-145)
[2024-06-03 08:03] LABS: Glucose Point of Care 88 mg/dl (65-105)
[2024-06-03] MEDS: FOLIC ACID 1 MG TABLET PO (08:43)
[2024-06-03] MEDS: FAMOTIDINE 20 MG/2 ML VIAL IV PUSH ×2 (08:44→20:34)
[2024-06-03] MEDS: THIAMINE HCL 100 MG TABLET PO (08:44)
[2024-06-03] MEDS: MULTIVITAMINS THERAPEUTIC TAB (*BKC) 1 TABLET PO (08:44)
[2024-06-03] MEDS: ASPIRIN 81 MG ENTERIC TABLET PO ×2 (08:44→20:34)
--- NOTE | 2024-06-03 09:22 | P.PNOP_ITS ---
Progress Note: A&P Assessment and Plan (1) Closed intertrochanteric fracture of right hip: Qualifiers: Encounter type: subsequent encounter Fracture alignment: displaced Fracture healing: with routine healing Qualified Code(s): S72.141D - Displaced intertrochanteric fracture of right femur, subsequent encounter for closed fracture with routine healing Code(s): S72.141A - Displaced intertrochanteric fracture of right femur, initial encounter for closed fracture Status: Acute Assessment and Plan: POD #3: Right Hip trochanteric nail Continue PT/OT. WBAT. Walker. HIGH FALL RISK. Continue pain control. Ice Hip. Protect skin. DVT prophylaxis with Aspirin. Remove lira catheter. SCDs. Incentive Spirometry Use reviewed. Monitor Dressing. Change prior to discharge. Bowel Regimen. Dispo: JAVIER pending progress with PT/OT Time Spent With Patient Time: Reviewed history, exam, radiographs and current labs with attending MD and covering surgeon, Dr. Somers, who agrees with current plan as indicated above. No further recommendations from Dr. Somers at this time. Subjective Subjective Date/Time Seen: 06/03/24 09:22 Post Op day: 3 Principal diagnosis: Right intertrochanteric hip fracture Interval history: POD #3: Right Hip Trochanteric Nail Patient doing well. Reports pain with ambulation. Otherwise, no concerns. A&Ox3. Review of Systems Review of Systems: All systems reviewed & are unremarkable except as noted in HPI and below Exam Const: General: comfortable; No acute distress Resp: Effort & Inspection: normal respiratory effort and no audible wheezes Extrem: Right lower extremity: lower leg ( Negative Homans sign), ankle Details: normal ROM ( dorsiflexion and plantar flexion intact) and foot Details: vascular exam Details: dorsalis pedis pulse present and normal capillary refill, tendon exam Details: active flexion normal and active extension normal and caedn r-sensory exam Details: light-touch normal Location: in all toes; no edema Left lower extremity: normal to inspection, ankle Details: normal ROM and foot Details: vascular exam Details: dorsalis pedis pulse present and normal capillary refill and motor-sensory exam light-touch normal in all toes; no edema Objective Data Vital Signs Vital Signs: Vital Signs - 24 hr 06/02/24 12:00 06/02/24 13:00 06/02/24 16:00 Temperature 36.1 C L Pulse Rate 113 H 110 H 96 Respiratory Rate 18 Blood Pressure 100/56 L Pulse Oximetry 95 Oxygen Delivery 06/02/24 20:02 06/02/24 20:30 06/02/24 21:45 Temperature 37.1 C Pulse Rate 80 96 94 Respiratory Rate 18 20 Blood Pressure 124/70 Pulse Oximetry 95 97 Oxygen Delivery Room Air 06/03/24 00:02 06/03/24 01:00 06/03/24 04:02 Temperature 37.0 C Pulse Rate 69 87 93 Respiratory Rate 20 Blood Pressure 169/84 H Pulse Oximetry 94 Oxygen Delivery 06/03/24 05:05 06/03/24 08:00 Temperature 36.9 C Pulse Rate 68 62 Respiratory Rate 20 Blood Pressure 147/69 H Pulse Oximetry 97 Oxygen Delivery Intake/Output Intake/Output: Intake & Output 05/31/24 06/01/24 06/02/24 06/03/24 23:59 23:59 23:59 23:59 Intake Total 1600 1280 1460 300 Output Total 2170 850 1900 725 Balance -570 430 -440 -425 Meds/Results Medications: Active Medications Generic Name Dose Route Start Last Admin Trade Name Freq PRN Reason Stop Dose Admin Acetaminophen 650 mg 05/30/24 19:11 Acetaminophen 325 Mg Tablet PO Q6H PRN Mild Pain (1-3) or Fever Hydrocodone Bitart/Acetaminophen 1 tab 05/30/24 19:11 06/02/24 20:33 Hydrocodone/Acetaminophen (*Crx) 5-325 Mg Tablet PO 1 tab Q6H PRN Administration Pain Rated 4-6 Aspirin 81 mg 05/31/24 21:00 06/03/24 08:44 Aspirin 81 Mg Enteric Tablet PO 81 mg Q12HR ABIOLA Administration Diazepam 5 mg 05/31/24 18:14 06/01/24 09:08 Diazepam (*Crx) 5 Mg Tablet PO 5 mg Q8H PRN Administration Muscle Spasm Famotidine 20 mg 05/31/24 21:00 06/03/24 08:44 Famotidine 20 Mg/2 Ml Vial IV PUSH 20 mg Q12HR ABIOLA Administration Folic Acid 1 mg 06/01/24 09:00 06/03/24 08:43 Folic Acid 1 Mg Tablet PO 1 mg DAILY ABIOLA Administration Hydralazine HCl 20 mg 05/31/24 15:22 05/31/24 17:00 Hydralazine Hcl 20 Mg/Ml Vial IV PUSH 20 mg Q6HR PRN Administration hypertension Ibuprofen 800 mg in 200 mls @ 400 mls/hr 05/31/24 18:14 Caldolor 800 Mg/200 Ml IVPB Q6H PRN Breakthrough Pain Rated 1-3 or NPO Morphine Sulfate 2 mg 05/30/24 19:11 Morphine Sulfate (*Crx) 2 Mg/Ml Inj IV PUSH Q4H PRN Pain Rated 7-10 Multivitamins Therapeutic 1 tablet 06/01/24 09:00 06/03/24 08:44 Multivitamins Therapeutic Tab (*Bkc) PO 1 tablet QAM [facility] Administration Naloxone HCl 0.1 mg 05/31/24 18:14 Naloxone Hcl 0.4 Mg/Ml Vial IV PUSH Q2M PRN Opiate Reversal Ondansetron HCl 4 mg 05/30/24 19:11 Ondansetron Inj 4 Mg/2 Ml Vial IV PUSH Q6H PRN Nausea And Vomiting Senna/Docusate Sodium 1 tab 05/30/24 19:11 Senna/Docusate Sodium Tablet PO HS PRN Constipation Thiamine HCl 100 mg 06/01/24 09:00 06/03/24 08:44 Thiamine Hcl 100 Mg Tablet PO 100 mg QAM [facility] Administration Radiology Results: ITS Impressions Hip X-Ray 05/30/24 11:52 IMPRESSION: 1. Comminuted intertrochanteric fracture of proximal right femur. 2. Mild right hip osteoarthritis. Chest X-Ray 05/30/24 13:10 IMPRESSION: 1. No acute cardiopulmonary disease. Fluoroscopy 06/02/24 08:10 IMPRESSION: 1. Intertrochanteric fracture of proximal right femur status post open reduction internal fixation. Labs Labs: Laboratory Results - last 24 hr 06/02/24 06/02/24 06/03/24 11:15 18:25 01:02 WBC RBC Hgb Hct MCV MCH MCHC RDW Plt Count MPV Sodium Potassium Chloride Carbon Dioxide Anion Gap BUN Creatinine Estim Creat Clear Calc Estimated GFR Glucose POC Capillary Glucose 102 102 94 Calcium Total Bilirubin AST ALT Alkaline Phosphatase Total Protein Albumin 06/03/24 06/03/24 06/03/24 05:06 05:54 08:00 WBC 8.3 RBC 3.18 L Hgb 11.2 L Hct 34.0 L MCV 106.9 H MCH 35.2 H MCHC 32.9 RDW 12.3 Plt Count 173 MPV 11.5 H Sodium 135 L Potassium 3.8 Chloride 102 Carbon Dioxide 26 Anion Gap 7 BUN 24 H Creatinine 1.48 H Estim Creat Clear Calc 32 Estimated GFR 46 L Glucose 87 POC Capillary Glucose 87 88 Calcium 8.5 Total Bilirubin 1.0 AST 23 ALT 8 Alkaline Phosphatase 78 Total Protein 6.0 L Albumin 2.7 L
[2024-06-03 10:04] LABS: Magnesium 1.6 mg/dL (1.6-2.3)
--- NOTE | 2024-06-03 11:00 | P.PNIM_ITS ---
Progress Note: A&P Assessment and Plan (1) Hip fracture: Qualifiers: Encounter type: initial encounter Fracture type: closed Laterality: right Qualified Code(s): S72.001A - Fracture of unspecified part of neck of right femur, initial encounter for closed fracture Code(s): S72.009A - Fracture of unspecified part of neck of unspecified femur, initial encounter for closed fracture Status: Acute Assessment and Plan: * Hip XR: 1. Comminuted intertrochanteric fracture of proximal right femur. 2. Mild right hip osteoarthritis. * check EKG, type and screen, BNP * orthopedics consulted, awaiting formal recs * analgesics p.r.n. * bedrest * NPO at midnight * will need PT/OT eval and treat postoperatively * Post-op DVT prophylaxis 06/01/2024: * Post-op day 1 * Pt/OT pending * ASA 06/02/24: * Post op day 2 * PT/OT * ASA * pain regimen 06/03/24: * Post op day 3 * PT/OT * ASA * pain regimen * SCDs. * Incentive Spirometry Use reviewed. * Monitor Dressing. Change prior to discharge. * Bowel Regimen. Dispo: [facility] pending progress with PT/OT (2) ETOH abuse: Code(s): F10.10 - Alcohol abuse, uncomplicated Status: Acute Assessment and Plan: Patient is a daily drinker, last drink was on Tuesday 05/23. Drinks a bottle of scotch and a bottle of wine nightly. Denies hx of withdrawal. * Last drink on 05/23 * Thiamine, folic acid, and multi-vitamin will add post op * PPI daily * Librium if indicated * Ativan PRN for seizure activity * CIWA daily * Monitor and replenish electrolytes as needed * Seizure precautions if indicated Plan Code status: Full code per patient DVT prophylaxis: SCD until post-op Stress ulcer prophylaxis: Pepcid PT/OT notes: PT/OT eval post-op Disposition: patient continues admission to the medical unit for further evaluation and treatment of right proximal femur fracture Surgery 05/31/24. PT/ OT evaluation postop for further discharge planning needs. Subjective Date/time seen: 06/03/24 11:00 Interval history: Patient sitting up in chair. Patient reports pain in right hip is a 3 sitting and a 8 with activity, pain is constant, and sharp. Patient denies chest pain, palpitations, headache, dizziness, nausea, or vomiting. Review of Systems Review of Systems: All systems reviewed & are unremarkable except as noted in HPI and below Exam Const: General: no acute distress and uncomfortable Resp: Effort & Inspection: normal respiratory effort Auscultation: clear to auscultation bilaterally Cardio: Rate: regular rate Rhythm: regular rhythm Other: Telemetry- SR 97. GI: GI Palp: Yes Soft to palpation Auscultation: normal bowel sounds Skin: Other: Dressing intact to right hips surgical incision, no drainage noted on dressing. No redness or swelling noted. Neuro: Speech: normal speech Extrem: General: no pedal edema Psych: Mental Status: mental status grossly normal Affect: normal affect Objective Data Vital Signs Vital Signs: Vital Signs - 24 hr 06/02/24 12:00 06/02/24 13:00 06/02/24 16:00 Temperature 96.9 F L Pulse Rate 113 H 110 H 96 Respiratory Rate 18 Blood Pressure 100/56 L Pulse Oximetry 95 Oxygen Delivery 06/02/24 20:02 06/02/24 20:30 06/02/24 21:45 Temperature 98.8 F Pulse Rate 80 96 94 Respiratory Rate 18 20 Blood Pressure 124/70 Pulse Oximetry 95 97 Oxygen Delivery Room Air 06/03/24 00:02 06/03/24 01:00 06/03/24 04:02 Temperature 98.6 F Pulse Rate 69 87 93 Respiratory Rate 20 Blood Pressure 169/84 H Pulse Oximetry 94 Oxygen Delivery 06/03/24 05:05 06/03/24 08:00 Temperature 98.4 F Pulse Rate 68 62 Respiratory Rate 20 Blood Pressure 147/69 H Pulse Oximetry 97 Oxygen Delivery Intake/Output Intake/Output: Intake & Output 05/31/24 06/01/24 06/02/24 06/03/24 23:59 23:59 23:59 23:59 Intake Total 1600 1280 1460 540 Output Total 2170 850 1900 725 Balance -570 430 -440 -185 Meds/Results Medications: Active Medications Generic Name Dose Route Start Last Admin Trade Name Freq PRN Reason Stop Dose Admin Acetaminophen 650 mg 05/30/24 19:11 Acetaminophen 325 Mg Tablet PO Q6H PRN Mild Pain (1-3) or Fever Hydrocodone Bitart/Acetaminophen 1 tab 05/30/24 19:11 06/02/24 20:33 Hydrocodone/Acetaminophen (*Crx) 5-325 Mg Tablet PO 1 tab Q6H PRN Administration Pain Rated 4-6 Aspirin 81 mg 05/31/24 21:00 06/03/24 08:44 Aspirin 81 Mg Enteric Tablet PO 81 mg Q12HR ABIOLA Administration Diazepam 5 mg 05/31/24 18:14 06/01/24 09:08 Diazepam (*Crx) 5 Mg Tablet PO 5 mg Q8H PRN Administration Muscle Spasm Famotidine 20 mg 05/31/24 21:00 06/03/24 08:44 Famotidine 20 Mg/2 Ml Vial IV PUSH 20 mg Q12HR ABIOLA Administration Folic Acid 1 mg 06/01/24 09:00 06/03/24 08:43 Folic Acid 1 Mg Tablet PO 1 mg DAILY ABIOLA Administration Hydralazine HCl 20 mg 05/31/24 15:22 05/31/24 17:00 Hydralazine Hcl 20 Mg/Ml Vial IV PUSH 20 mg Q6HR PRN Administration hypertension Ibuprofen 800 mg in 200 mls @ 400 mls/hr 05/31/24 18:14 Caldolor 800 Mg/200 Ml IVPB Q6H PRN Breakthrough Pain Rated 1-3 or NPO Morphine Sulfate 2 mg 05/30/24 19:11 Morphine Sulfate (*Crx) 2 Mg/Ml Inj IV PUSH Q4H PRN Pain Rated 7-10 Multivitamins Therapeutic 1 tablet 06/01/24 09:00 06/03/24 08:44 Multivitamins Therapeutic Tab (*Bkc) PO 1 tablet QAM ABIOLA Administration Naloxone HCl 0.1 mg 05/31/24 18:14 Naloxone Hcl 0.4 Mg/Ml Vial IV PUSH Q2M PRN Opiate Reversal Ondansetron HCl 4 mg 05/30/24 19:11 Ondansetron Inj 4 Mg/2 Ml Vial IV PUSH Q6H PRN Nausea And Vomiting Senna/Docusate Sodium 1 tab 05/30/24 19:11 Senna/Docusate Sodium Tablet PO HS PRN Constipation Thiamine HCl 100 mg 06/01/24 09:00 06/03/24 08:44 Thiamine Hcl 100 Mg Tablet PO 100 mg QAM ABIOLA Administration Radiology Results: ITS Impressions Hip X-Ray 05/30/24 11:52 IMPRESSION: 1. Comminuted intertrochanteric fracture of proximal right femur. 2. Mild right hip osteoarthritis. Chest X-Ray 05/30/24 13:10 IMPRESSION: 1. No acute cardiopulmonary disease. Fluoroscopy 06/02/24 08:10 IMPRESSION: 1. Intertrochanteric fracture of proximal right femur status post open reduction internal fixation. Labs Labs: Laboratory Results - last 24 hr 06/02/24 06/02/24 06/03/24 11:15 18:25 01:02 WBC RBC Hgb Hct MCV MCH MCHC RDW Plt Count MPV Sodium Potassium Chloride Carbon Dioxide Anion Gap BUN Creatinine Estim Creat Clear Calc Estimated GFR Glucose POC Capillary Glucose 102 102 94 Calcium Magnesium Total Bilirubin AST ALT Alkaline Phosphatase Total Protein Albumin 06/03/24 06/03/24 06/03/24 05:06 05:52 05:54 WBC 8.3 RBC 3.18 L Hgb 11.2 L Hct 34.0 L MCV 106.9 H MCH 35.2 H MCHC 32.9 RDW 12.3 Plt Count 173 MPV 11.5 H Sodium 135 L Potassium 3.8 Chloride 102 Carbon Dioxide 26 Anion Gap 7 BUN 24 H Creatinine 1.48 H Estim Creat Clear Calc 32 Estimated GFR 46 L Glucose 87 POC Capillary Glucose 87 Calcium 8.5 Magnesium 1.6 Total Bilirubin 1.0 AST 23 ALT 8 Alkaline Phosphatase 78 Total Protein 6.0 L Albumin 2.7 L 06/03/24 08:00 WBC RBC Hgb Hct MCV MCH MCHC RDW Plt Count MPV Sodium Potassium Chloride Carbon Dioxide Anion Gap BUN Creatinine Estim Creat Clear Calc Estimated GFR Glucose POC Capillary Glucose 88 Calcium Magnesium Total Bilirubin AST ALT Alkaline Phosphatase Total Protein Albumin Quality VTE Prophylaxis VTE prophylaxis: mechanical ordered
[2024-06-03 11:42] LABS: Glucose Point of Care 144 mg/dl (65-105)
[2024-06-03 17:20] LABS: Glucose Point of Care 94 mg/dl (65-105)
[2024-06-04] VITALS (11 sets, daily range): BP systolic 123–150; BP diastolic 60–77; PULSE 61–107; RESP 16–18; TEMP 36.7–37.6; O2SAT 96–100
[2024-06-04 00:08] LABS: Glucose Point of Care 103 mg/dl (65-105)
[2024-06-04 05:52] LABS: Glucose Point of Care 94 mg/dl (65-105)
[2024-06-04 06:24] LABS: Alanine Aminotransferase 8 U/L (6-50); Albumin Level 2.7 g/dL (3.5-5.1); Alkaline Phosphatase 76 U/L (38-126); Anion Gap 9 mmol/L (4-12); Aspartate Amino Transferase 25 U/L (17-59); Bilirubin,Total 0.9 mg/dL (0.2-1.3); Blood Urea Nitrogen 27 mg/dL (9-20); Calcium 8.3 mg/dL (8.4-10.2); Carbon Dioxide 24 mmol/L (22-30); Chloride 102 mmol/L (98-107); Estimated CRCL calculation 35 ml/min; Estimated Glomerular Filt Rate 50; Glucose 91 mg/dL (65-110); Magnesium 1.6 mg/dL (1.6-2.3); Potassium 3.9 mmol/L (3.4-5.0); Sodium 135 mmol/L (137-145)
[2024-06-04 06:28] LABS: Hematocrit 31.4 % (42.0-52.0); Hemoglobin 10.6 g/dL (14.0-18.0); Mean Corpuscular HGB Conc 33.8 g/dl (32-36); Mean Corpuscular Hemoglobin 36.4 pg (26-34); Mean Corpuscular Volume 107.9 fl (80-100); Mean Platelet Volume 11.5 fl (7.4-10.4); Platelet Count Result 182 k/mm3 (150-375); Red Blood Count 2.91 M/mm3 (4.6-6.20); Red Cell Distribution Width 12.4 % (11.5-14.5); White Blood Count 8.8 K/mm3 (4.5-10.0)
--- NOTE | 2024-06-04 08:05 | P.PNIM_ITS ---
Progress Note: A&P Assessment and Plan (1) Hip fracture: Qualifiers: Encounter type: initial encounter Fracture type: closed Laterality: right Qualified Code(s): S72.001A - Fracture of unspecified part of neck of right femur, initial encounter for closed fracture Code(s): S72.009A - Fracture of unspecified part of neck of unspecified femur, initial encounter for closed fracture Status: Acute Assessment and Plan: Patient had a mechanical ground level fall resulting in right hip pain. Denies head strike or loss of consciousness. He is not on anticoagulation currently. * Hip XR: 1. Comminuted intertrochanteric fracture of proximal right femur. 2. Mild right hip osteoarthritis. * analgesics p.r.n. * PT/OT eval and treat postoperatively per ortho: WBAT * Post-op DVT prophylaxis per ortho: ASA patient having 2+ pitting edema to the RLE, will obtain doppler to rule out DVT given recent procedure. DP pulse intact. * orthopedics consulted, awaiting formal recs s/p Right hip trochanteric nail on 05/[address] Somesr (2) ETOH abuse: Code(s): F10.10 - Alcohol abuse, uncomplicated Status: Acute Assessment and Plan: Patient is a daily drinker, last drink was on Tuesday 05/23. Drinks a bottle of scotch and a bottle of wine nightly. Denies hx of withdrawal. * Last drink on 05/23 * Thiamine, folic acid, and multi-vitamin will add post op * PPI daily * Librium if indicated * Ativan PRN for seizure activity * CIWA daily * Monitor and replenish electrolytes as needed * Seizure precautions if indicated Plan Code status: Full code per patient DVT prophylaxis: ASA Stress ulcer prophylaxis: Pepcid PT/OT notes: PT/OT eval post-op Disposition: Patient continues admission to the medical unit for further evaluation and treatment of right proximal femur fracture Surgery 05/31/24. Per care coordination patient no longer able to go to [facility] due to prior felony and cannot have home health as he has no insurance. Discussed with patient and he feels equipped to do outpatient therapy at time of discharge. Time Spent With Patient Time with patient: 25 - 35 minutes Subjective Date/time seen: 06/04/24 08:05 Interval history: 78 y/o M presents here with right hip pain and low back pain with PMH of daily alcohol use. Patient is pleasant sitting up comfortably in his chair. He continues endorse pain to lower extremity however is working well with therapy. Patient has lower extremity edema, will obtain a venous doppler. He has no other complaints denying chest pain, palpitations, nausea/vomiting and shortness of breath. Per care coordination patient no longer able to go to [facility] due to prior felony and cannot have home health as he has no insurance. Discussed with patient and he feels equipped to do outpatient therapy at time of discharge. Review of Systems Review of Systems: All systems reviewed & are unremarkable except as noted in HPI and below Exam Narrative: AF HR 79 RR 18 SpO2 99 BP 123/77 General: male in no acute respiratory distress who is nontoxic appearing, sitting up in chair HEENT: Normocephalic. Atraumatic. Extraocular movement intact. Sclera clear and anicteric. No facial asymmetry. Chest: Lungs are clear to auscultation bilaterally. No wheezes or crackles. CV: Heart was regular rate and rhythm. S1/S2. No murmurs, gallops, or rubs. Abd: Abdomen was soft. Nontender. Nondistended. Positive bowel sounds. Ext: No clubbing, cyanosis. DP pulses present. Pitting edema to the right lower extremity. Neuro: Patient is alert and oriented x4. Speech is clear. Objective Data Vital Signs Vital Signs: Vital Signs - 24 hr 06/03/24 12:00 06/03/24 14:28 06/03/24 16:00 Temperature 98.2 F Pulse Rate 100 93 90 Respiratory Rate 16 Blood Pressure 108/65 Pulse Oximetry 99 Oxygen Delivery 06/03/24 20:02 06/03/24 20:30 06/03/24 21:19 Temperature 98.4 F Pulse Rate 82 78 78 Respiratory Rate 18 18 Blood Pressure 136/66 Pulse Oximetry 100 100 Oxygen Delivery Room Air 06/04/24 00:02 06/04/24 04:02 06/04/24 05:18 Temperature 98.7 F Pulse Rate 62 96 76 Respiratory Rate 18 Blood Pressure 130/60 Pulse Oximetry 100 Oxygen Delivery Intake/Output Intake/Output: Intake & Output 06/01/24 06/02/24 06/03/24 06/04/24 23:59 23:59 23:59 23:59 Intake Total 1280 1460 980 437 Output Total 850 7411 512 1936 Balance 430 -440 155 -758 Meds/Results Medications: Active Medications Generic Name Dose Route Start Last Admin Trade Name Freq PRN Reason Stop Dose Admin Acetaminophen 650 mg 05/30/24 19:11 Acetaminophen 325 Mg Tablet PO Q6H PRN Mild Pain (1-3) or Fever Hydrocodone Bitart/Acetaminophen 1 tab 05/30/24 19:11 06/02/24 20:33 Hydrocodone/Acetaminophen (*Crx) 5-325 Mg Tablet PO 1 tab Q6H PRN Administration Pain Rated 4-6 Aspirin 81 mg 05/31/24 21:00 06/03/24 20:34 Aspirin 81 Mg Enteric Tablet PO 81 mg Q12HR ABIOLA Administration Diazepam 5 mg 05/31/24 18:14 06/01/24 09:08 Diazepam (*Crx) 5 Mg Tablet PO 5 mg Q8H PRN Administration Muscle Spasm Famotidine 20 mg 05/31/24 21:00 06/03/24 20:34 Famotidine 20 Mg/2 Ml Vial IV PUSH 20 mg Q12HR ABIOLA Administration Folic Acid 1 mg 06/01/24 09:00 06/03/24 08:43 Folic Acid 1 Mg Tablet PO 1 mg DAILY ABIOLA Administration Hydralazine HCl 20 mg 05/31/24 15:22 05/31/24 17:00 Hydralazine Hcl 20 Mg/Ml Vial IV PUSH 20 mg Q6HR PRN Administration hypertension Ibuprofen 800 mg in 200 mls @ 400 mls/hr 05/31/24 18:14 Caldolor 800 Mg/200 Ml IVPB Q6H PRN Breakthrough Pain Rated 1-3 or NPO Morphine Sulfate 2 mg 05/30/24 19:11 Morphine Sulfate (*Crx) 2 Mg/Ml Inj IV PUSH Q4H PRN Pain Rated 7-10 Multivitamins Therapeutic 1 tablet 06/01/24 09:00 06/03/24 08:44 Multivitamins Therapeutic Tab (*Bkc) PO 1 tablet QAM ABIOLA Administration Naloxone HCl 0.1 mg 05/31/24 18:14 Naloxone Hcl 0.4 Mg/Ml Vial IV PUSH Q2M PRN Opiate Reversal Ondansetron HCl 4 mg 05/30/24 19:11 Ondansetron Inj 4 Mg/2 Ml Vial IV PUSH Q6H PRN Nausea And Vomiting Senna/Docusate Sodium 1 tab 05/30/24 19:11 Senna/Docusate Sodium Tablet PO HS PRN Constipation Thiamine HCl 100 mg 06/01/24 09:00 06/03/24 08:44 Thiamine Hcl 100 Mg Tablet PO 100 mg QAM ABIOLA Administration Radiology Results: ITS Impressions Hip X-Ray 05/30/24 11:52 IMPRESSION: 1. Comminuted intertrochanteric fracture of proximal right femur. 2. Mild right hip osteoarthritis. Chest X-Ray 05/30/24 13:10 IMPRESSION: 1. No acute cardiopulmonary disease. Fluoroscopy 06/02/24 08:10 IMPRESSION: 1. Intertrochanteric fracture of proximal right femur status post open reduction internal fixation. Labs Labs: Laboratory Results - last 24 hr 06/03/24 06/03/24 06/03/24 05:52 11:39 17:17 WBC RBC Hgb Hct MCV MCH MCHC RDW Plt Count MPV Sodium Potassium Chloride Carbon Dioxide Anion Gap BUN Creatinine Estim Creat Clear Calc Estimated GFR Glucose POC Capillary Glucose 144 H 94 Calcium Magnesium 1.6 Total Bilirubin AST ALT Alkaline Phosphatase Total Protein Albumin 06/03/24 06/04/24 06/04/24 23:51 05:28 05:29 WBC 8.8 RBC 2.91 L Hgb 10.6 L Hct 31.4 L MCV 107.9 H MCH 36.4 H MCHC 33.8 RDW 12.4 Plt Count 182 MPV 11.5 H Sodium 135 L Potassium 3.9 Chloride 102 Carbon Dioxide 24 Anion Gap 9 BUN 27 H Creatinine 1.37 H Estim Creat Clear Calc 35 Estimated GFR 50 L Glucose 91 POC Capillary Glucose 103 Calcium 8.3 L Magnesium 1.6 Total Bilirubin 0.9 AST 25 ALT 8 Alkaline Phosphatase 76 Total Protein 5.0 L Albumin 2.7 L 06/04/24 05:34 WBC RBC Hgb Hct MCV MCH MCHC RDW Plt Count MPV Sodium Potassium Chloride Carbon Dioxide Anion Gap BUN Creatinine Estim Creat Clear Calc Estimated GFR Glucose POC Capillary Glucose 94 Calcium Magnesium Total Bilirubin AST ALT Alkaline Phosphatase Total Protein Albumin Quality VTE Prophylaxis VTE prophylaxis: mechanical ordered and pharmacologic ordered
[2024-06-04] MEDS: MULTIVITAMINS THERAPEUTIC TAB (*BKC) 1 TABLET PO (09:00)
[2024-06-04] MEDS: THIAMINE HCL 100 MG TABLET PO (09:00)
[2024-06-04] MEDS: FOLIC ACID 1 MG TABLET PO (09:00)
[2024-06-04] MEDS: ASPIRIN 81 MG ENTERIC TABLET PO ×2 (09:00→20:13)
[2024-06-04] MEDS: FAMOTIDINE 20 MG/2 ML VIAL IV PUSH ×2 (09:00→20:13)
[2024-06-04 11:41] LABS: Glucose Point of Care 87 mg/dl (65-105)
--- NOTE | 2024-06-04 12:05 | PM.PNORT ---
Progress Note: A&P Assessment and Plan (1) Closed intertrochanteric fracture of right hip: Qualifiers: Encounter type: subsequent encounter Fracture alignment: displaced Fracture healing: with routine healing Qualified Code(s): S72.141D - Displaced intertrochanteric fracture of right femur, subsequent encounter for closed fracture with routine healing Code(s): S72.141A - Displaced intertrochanteric fracture of right femur, initial encounter for closed fracture Status: Acute Assessment and Plan: POD #4: Right Hip trochanteric nail Continue PT/OT. WBAT. Walker. HIGH FALL RISK. Continue pain control. Ice. Protect skin. DVT prophylaxis with Aspirin. Remove lira catheter. SCDs. Incentive Spirometry Use reviewed. Monitor Dressing. Change prior to discharge. Bowel Regimen. Dispo: [facility]IER pending progress with PT/OT Subjective Subjective Date/Time Seen: 06/04/24 12:05 Post Op day: 3 Principal diagnosis: Right intertrochanteric hip fracture Interval history: POD #4: Right Hip Trochanteric Nail Patient doing well. Reports pain with ambulation. Otherwise, no concerns. A&Ox3. Exam Const: General: comfortable; No acute distress Resp: Effort & Inspection: normal respiratory effort and no audible wheezes Extrem: Right lower extremity: hip/thigh Details: other ( Incision clean and dry. No erythema. Muscles soft.), lower leg ( Negative Homans sign), ankle Details: normal ROM ( dorsiflexion and plantar flexion intact) and foot Details: vascular exam Details: dorsalis pedis pulse present and normal capillary refill, tendon exam Details: active flexion normal and active extension normal and motor-sensory exam Details: light-touch normal Location: in all toes; no edema Left lower extremity: normal to inspection, ankle Details: normal ROM and foot Details: vascular exam Details: dorsalis pedis pulse present and normal capillary refill and motor-sensory exam light-touch normal in all toes; no edema Objective Data Vital Signs Vital Signs: Vital Signs - 24 hr 06/03/24 14:28 06/03/24 16:00 06/03/24 20:02 Temperature 98.2 F Pulse Rate 93 90 82 Respiratory Rate 16 Blood Pressure 108/65 Pulse Oximetry 99 Oxygen Delivery 06/03/24 20:30 06/03/24 21:19 06/04/24 00:02 Temperature 98.4 F Pulse Rate 78 78 62 Respiratory Rate 18 18 Blood Pressure 136/66 Pulse Oximetry 100 100 Oxygen Delivery Room Air 06/04/24 04:02 06/04/24 05:18 Temperature 98.7 F Pulse Rate 96 76 Respiratory Rate 18 Blood Pressure 130/60 Pulse Oximetry 100 Oxygen Delivery Intake/Output Intake/Output: Intake & Output 06/01/24 06/02/24 06/03/24 06/04/24 23:59 23:59 23:59 23:59 Intake Total 1280 1460 980 937 Output Total 850 8554 529 7378 Balance 430 -440 155 -558 Meds/Results Medications: Active Medications Generic Name Dose Route Start Last Admin Trade Name Freq PRN Reason Stop Dose Admin Acetaminophen 650 mg 05/30/24 19:11 Acetaminophen 325 Mg Tablet PO Q6H PRN Mild Pain (1-3) or Fever Hydrocodone Bitart/Acetaminophen 1 tab 05/30/24 19:11 06/02/24 20:33 Hydrocodone/Acetaminophen (*Crx) 5-325 Mg Tablet PO 1 tab Q6H PRN Administration Pain Rated 4-6 Aspirin 81 mg 05/31/24 21:00 06/04/24 09:00 Aspirin 81 Mg Enteric Tablet PO 81 mg Q12HR ABIOLA Administration Diazepam 5 mg 05/31/24 18:14 06/01/24 09:08 Diazepam (*Crx) 5 Mg Tablet PO 5 mg Q8H PRN Administration Muscle Spasm Famotidine 20 mg 05/31/24 21:00 06/04/24 09:00 Famotidine 20 Mg/2 Ml Vial IV PUSH 20 mg Q12HR ABIOLA Administration Folic Acid 1 mg 06/01/24 09:00 06/04/24 09:00 Folic Acid 1 Mg Tablet PO 1 mg DAILY ABIOLA Administration Hydralazine HCl 20 mg 05/31/24 15:22 05/31/24 17:00 Hydralazine Hcl 20 Mg/Ml Vial IV PUSH 20 mg Q6HR PRN Administration hypertension Ibuprofen 800 mg in 200 mls @ 400 mls/hr 05/31/24 18:14 Caldolor 800 Mg/200 Ml IVPB Q6H PRN Breakthrough Pain Rated 1-3 or NPO Morphine Sulfate 2 mg 05/30/24 19:11 Morphine Sulfate (*Crx) 2 Mg/Ml Inj IV PUSH Q4H PRN Pain Rated 7-10 Multivitamins Therapeutic 1 tablet 06/01/24 09:00 06/04/24 09:00 Multivitamins Therapeutic Tab (*Bkc) PO 1 tablet QAM ABIOLA Administration Naloxone HCl 0.1 mg 05/31/24 18:14 Naloxone Hcl 0.4 Mg/Ml Vial IV PUSH Q2M PRN Opiate Reversal Ondansetron HCl 4 mg 05/30/24 19:11 Ondansetron Inj 4 Mg/2 Ml Vial IV PUSH Q6H PRN Nausea And Vomiting Senna/Docusate Sodium 1 tab 05/30/24 19:11 Senna/Docusate Sodium Tablet PO HS PRN Constipation Thiamine HCl 100 mg 06/01/24 09:00 06/04/24 09:00 Thiamine Hcl 100 Mg Tablet PO 100 mg QAM ABIOLA Administration Radiology Results: ITS Impressions Hip X-Ray 05/30/24 11:52 IMPRESSION: 1. Comminuted intertrochanteric fracture of proximal right femur. 2. Mild right hip osteoarthritis. Chest X-Ray 05/30/24 13:10 IMPRESSION: 1. No acute cardiopulmonary disease. Fluoroscopy 06/02/24 08:10 IMPRESSION: 1. Intertrochanteric fracture of proximal right femur status post open reduction internal fixation. Labs Labs: Laboratory Results - last 24 hr 06/03/24 06/03/24 06/04/24 17:17 23:51 05:28 WBC 8.8 RBC 2.91 L Hgb 10.6 L Hct 31.4 L MCV 107.9 H MCH 36.4 H MCHC 33.8 RDW 12.4 Plt Count 182 MPV 11.5 H Sodium Potassium Chloride Carbon Dioxide Anion Gap BUN Creatinine Estim Creat Clear Calc Estimated GFR Glucose POC Capillary Glucose 94 103 Calcium Magnesium Total Bilirubin AST ALT Alkaline Phosphatase Total Protein Albumin 06/04/24 06/04/24 06/04/24 05:29 05:34 11:28 WBC RBC Hgb Hct MCV MCH MCHC RDW Plt Count MPV Sodium 135 L Potassium 3.9 Chloride 102 Carbon Dioxide 24 Anion Gap 9 BUN 27 H Creatinine 1.37 H Estim Creat Clear Calc 35 Estimated GFR 50 L Glucose 91 POC Capillary Glucose 94 87 Calcium 8.3 L Magnesium 1.6 Total Bilirubin 0.9 AST 25 ALT 8 Alkaline Phosphatase 76 Total Protein 5.0 L Albumin 2.7 L
[2024-06-04 18:33] LABS: Glucose Point of Care 101 mg/dl (65-105)
[2024-06-04 21:04] LABS: Glucose Point of Care 107 mg/dl (65-105)
[2024-06-05 00:02] VITALS: PULSE 77
[2024-06-05 04:03] VITALS: PULSE 88
[2024-06-05 06:35] VITALS: BP 155/89; PULSE 85; RESP 16; TEMP 36.8; O2SAT 97
[2024-06-05 07:54] LABS: Hematocrit 31.1 % (42.0-52.0); Hemoglobin 10.5 g/dL (14.0-18.0); Mean Corpuscular HGB Conc 33.8 g/dl (32-36); Mean Corpuscular Volume 106.5 fl (80-100); Mean Platelet Volume 10.7 fl (7.4-10.4); Platelet Count Result 212 k/mm3 (150-375); Red Blood Count 2.92 M/mm3 (4.6-6.20); Red Cell Distribution Width 12.2 % (11.5-14.5); White Blood Count 7.8 K/mm3 (4.5-10.0)
[2024-06-05 08:30] LABS: Alanine Aminotransferase 10 U/L (6-50); Albumin Level 2.7 g/dL (3.5-5.1); Alkaline Phosphatase 91 U/L (38-126); Anion Gap 3 mmol/L (4-12); Aspartate Amino Transferase 26 U/L (17-59); Blood Urea Nitrogen 26 mg/dL (9-20); Calcium 8.6 mg/dL (8.4-10.2); Carbon Dioxide 29 mmol/L (22-30); Chloride 105 mmol/L (98-107); Estimated CRCL calculation 40 ml/min; Estimated Glomerular Filt Rate 60; Glucose 93 mg/dL (65-110); Magnesium 1.6 mg/dL (1.6-2.3); Potassium 4.4 mmol/L (3.4-5.0); Sodium 137 mmol/L (137-145)
--- NOTE | 2024-06-05 09:40 | PM.PNORT ---
Progress Note: A&P Assessment and Plan (1) Closed intertrochanteric fracture of right hip: Qualifiers: Encounter type: subsequent encounter Fracture alignment: displaced Fracture healing: with routine healing Qualified Code(s): S72.141D - Displaced intertrochanteric fracture of right femur, subsequent encounter for closed fracture with routine healing Code(s): S72.141A - Displaced intertrochanteric fracture of right femur, initial encounter for closed fracture Status: Acute Assessment and Plan: POD #5: Right Hip trochanteric nail Continue PT/OT. WBAT. Walker. HIGH FALL RISK. Continue pain control. Ice. Protect skin. DVT treatment with Eliquis. Stop Aspirin per Dr. Somers. SCDs. Incentive Spirometry Use reviewed. Monitor Dressing. Change prior to discharge. Bowel Regimen. (2) DVT (deep venous thrombosis): Qualifiers: DVT location: lower extremity Affected thrombotic vein of extremity: other lower extremity vein Chronicity: acute Code(s): I82.409 - Acute embolism and thrombosis of unspecified deep veins of unspecified lower extremity Status: Acute Assessment and Plan: Post Op Doppler ordered due to RLE swelling. Doppler reveals a thrombus within the superficial femoral vein and deep femoral vein confluence with noncompressibility and noncompressibility and absence of flow within the right posterior tibial and peroneal veins. Patient started Eliquis by Hospitalist service. Subjective Subjective Date/Time Seen: 06/05/24 09:40 Post Op day: 5 Principal diagnosis: Right intertrochanteric hip fracture Interval history: POD #5: Right Hip Trochanteric Nail Patient doing well. Reports pain with ambulation. Otherwise, no concerns. A&Ox3. Dopplers yesterday reveal a DVT. Review of Systems Review of Systems: All systems reviewed & are unremarkable except as noted in HPI and below Exam Const: General: comfortable; No acute distress Resp: Effort & Inspection: normal respiratory effort and no audible wheezes Extrem: Right lower extremity: hip/thigh Details: other ( Incision clean and dry. No erythema. Muscles soft.), lower leg ( Negative Homans sign), ankle Details: normal ROM ( dorsiflexion and plantar flexion intact) and foot Details: vascular exam Details: dorsalis pedis pulse present and normal capillary refill, tendon exam Details: active flexion normal and active extension normal and motor-sensory exam Details: light-touch normal Location: in all toes; no edema Left lower extremity: normal to inspection, ankle Details: normal ROM and foot Details: vascular exam Details: dorsalis pedis pulse present and normal capillary refill and motor-sensory exam light-touch normal in all toes; no edema Objective Data Vital Signs Vital Signs: Vital Signs - 24 hr 06/04/24 12:00 06/04/24 14:00 06/04/24 16:00 Temperature 36.7 C Pulse Rate 107 H 79 93 Respiratory Rate 18 Blood Pressure 123/77 Pulse Oximetry 99 Oxygen Delivery 06/04/24 20:03 06/04/24 20:10 06/04/24 21:54 Temperature 37.1 C Pulse Rate 82 93 71 Respiratory Rate 18 16 Blood Pressure 150/77 H Pulse Oximetry 99 100 Oxygen Delivery Room Air 06/04/24 23:48 06/05/24 00:02 06/05/24 04:03 Temperature 37.6 C Pulse Rate 75 77 88 Respiratory Rate 16 Blood Pressure Pulse Oximetry 96 Oxygen Delivery 06/05/24 06:35 Temperature 36.8 C Pulse Rate 85 Respiratory Rate 16 Blood Pressure 155/89 H Pulse Oximetry 97 Oxygen Delivery Intake/Output Intake/Output: Intake & Output 06/02/24 06/03/24 06/04/24 06/05/24 23:59 23:59 23:59 23:59 Intake Total 7259 620 5012 268 Output Total 7702 873 0722 Balance -440 155 66 268 Meds/Results Medications: Active Medications Generic Name Dose Route Start Last Admin Trade Name Freq PRN Reason Stop Dose Admin Acetaminophen 650 mg 05/30/24 19:11 Acetaminophen 325 Mg Tablet PO Q6H PRN Mild Pain (1-3) or Fever Hydrocodone Bitart/Acetaminophen 1 tab 05/30/24 19:11 06/02/24 20:33 Hydrocodone/Acetaminophen (*Crx) 5-325 Mg Tablet PO 1 tab Q6H PRN Administration Pain Rated 4-6 Apixaban 10 mg 06/05/24 09:00 Apixaban 5 Mg Tablet PO 06/11/24 21:00 Q12HR ABIOLA Apixaban 5 mg 06/12/24 09:00 Apixaban 5 Mg Tablet PO 09/10/24 08:59 Q12HR ABIOLA Diazepam 5 mg 05/31/24 18:14 06/01/24 09:08 Diazepam (*Crx) 5 Mg Tablet PO 5 mg Q8H PRN Administration Muscle Spasm Famotidine 20 mg 05/31/24 21:00 06/04/24 20:13 Famotidine 20 Mg/2 Ml Vial IV PUSH 20 mg Q12HR ABIOLA Administration Folic Acid 1 mg 06/01/24 09:00 06/04/24 09:00 Folic Acid 1 Mg Tablet PO 1 mg DAILY ABIOLA Administration Hydralazine HCl 20 mg 05/31/24 15:22 05/31/24 17:00 Hydralazine Hcl 20 Mg/Ml Vial IV PUSH 20 mg Q6HR PRN Administration hypertension Morphine Sulfate 2 mg 05/30/24 19:11 Morphine Sulfate (*Crx) 2 Mg/Ml Inj IV PUSH Q4H PRN Pain Rated 7-10 Multivitamins Therapeutic 1 tablet 06/01/24 09:00 06/04/24 09:00 Multivitamins Therapeutic Tab (*Bkc) PO 1 tablet QAM ABIOLA Administration Naloxone HCl 0.1 mg 05/31/24 18:14 Naloxone Hcl 0.4 Mg/Ml Vial IV PUSH Q2M PRN Opiate Reversal Ondansetron HCl 4 mg 05/30/24 19:11 Ondansetron Inj 4 Mg/2 Ml Vial IV PUSH Q6H PRN Nausea And Vomiting Senna/Docusate Sodium 1 tab 05/30/24 19:11 Senna/Docusate Sodium Tablet PO HS PRN Constipation Thiamine HCl 100 mg 06/01/24 09:00 06/04/24 09:00 Thiamine Hcl 100 Mg Tablet PO 100 mg QAM ABIOLA Administration Radiology Results: ITS Impressions Hip X-Ray 05/30/24 11:52 IMPRESSION: 1. Comminuted intertrochanteric fracture of proximal right femur. 2. Mild right hip osteoarthritis. Chest X-Ray 05/30/24 13:10 IMPRESSION: 1. No acute cardiopulmonary disease. Fluoroscopy 06/02/24 08:10 IMPRESSION: 1. Intertrochanteric fracture of proximal right femur status post open reduction internal fixation. Venous Doppler Study 06/04/24 16:25 IMPRESSION: Thrombus within the superficial femoral vein and deep femoral vein confluence with noncompressibility. Noncompressibility and absence of flow within the right posterior tibial and peroneal veins. Labs Labs: Laboratory Results - last 24 hr 03/05/25 03/05/25 03/05/25 11:28 18:28 21:02 WBC RBC Hgb Hct MCV MCH MCHC RDW Plt Count MPV Sodium Potassium Chloride Carbon Dioxide Anion Gap BUN Creatinine Estim Creat Clear Calc Estimated GFR Glucose POC Capillary Glucose 87 101 107 H Calcium Magnesium Total Bilirubin AST ALT Alkaline Phosphatase Total Protein Albumin 06/05/24 06/05/24 07:39 07:39 WBC 7.8 RBC 2.92 L Hgb 10.5 L Hct 31.1 L MCV 106.5 H MCH 36.0 H MCHC 33.8 RDW 12.2 Plt Count 212 MPV 10.7 H Sodium 137 Potassium 4.4 Chloride 105 Carbon Dioxide 29 Anion Gap 3 L BUN 26 H Creatinine 1.18 Estim Creat Clear Calc 40 Estimated GFR 60 Glucose 93 POC Capillary Glucose Calcium 8.6 Magnesium 1.6 Cancelled Total Bilirubin 1.0 AST 26 ALT 10 Alkaline Phosphatase 91 Total Protein 6.0 L Albumin 2.7 L
[2024-06-05] MEDS: FOLIC ACID 1 MG TABLET PO (09:42)
[2024-06-05] MEDS: THIAMINE HCL 100 MG TABLET PO (09:42)
[2024-06-05] MEDS: APIXABAN 5 MG TABLET 10 MG PO (09:42)
[2024-06-05] MEDS: FAMOTIDINE 20 MG/2 ML VIAL IV PUSH (09:43)
[2024-06-05] MEDS: HYDROcodone/acetaminophen (*CRX) 5-325 MG TABLET 1 TAB PO (09:58)
[2024-06-05 11:26] LABS: Glucose Point of Care 135 mg/dl (65-105)
[2024-06-05 13:27] VITALS: BP 114/68; PULSE 79; RESP 16; TEMP 36.1; O2SAT 100
--- NOTE | 2024-06-05 13:54 | PC.NURSE ---
Discharge notes reviewed multiple times in great detail. Patient verified understanding that he has been given a written script for pain medication that can not be replaced. He confirmed he will pear picker all prescriptions, use a walker, not drive, and schedule, keep follow up appointments.
--- NOTE | 2024-06-05 15:04 | P.DS_ITS ---
DS: Admitting Diagnosis Discharge Date 06/05/2024 Admitting Diagnosis HIp fracture ETOH abuse DS: Discharge Diagnosis Discharge Diagnosis (1) Hip fracture: Qualifiers: Encounter type: initial encounter Fracture type: closed Laterality: right Qualified Code(s): S72.001A - Fracture of unspecified part of neck of right femur, initial encounter for closed fracture Code(s): S72.009A - Fracture of unspecified part of neck of unspecified femur, initial encounter for closed fracture Status: Acute (2) ETOH abuse: Code(s): F10.10 - Alcohol abuse, uncomplicated Status: Acute DS: Summary Hospital Course Reason for hospitalization: HIp fracture ETOH abuse Hospital Course: 78 y/o M with past medical history of daily alcohol use presents to the hospital with right hip pain and low back pain after a mechanical fall at home. He denies head strike or loss of consciousness. He is not on anticoagulation currently. Hip XR showed comminuted intertrochanteric fracture of proximal right femur and mild right hip osteoarthritis. Ortho consulted and patient underwent a right hip trochanteric nail on 05/[address] Somers. Following the procedure he worked with therapy. He developed lower extremity edema. Venous doppler was obtained and showed thrombus within the superficial femoral vein and deep femoral vein confluence with noncompressibility as well as noncompressibility and absence of flow within the right posterior tibial and peroneal veins. Discussed patient with Dr. Somers and he was transitioned from aspirin for DVT prophylaxis to eliquis for DVT treatment. Patient was given an eliquis coupon for free 30 days from care coordination and states that he will be able to pay out of pocket for the remaining medication. Had an in depth conversation with the patient about the importance of taking this medication and the bleeding risks that accompany this medication. He states understanding. Plan was for patient to go to [facility] for continued therapy, however per care coordination patient no longer able to go to [facility] due to prior felony and cannot have home health as he has no insurance. Discussed with patient and he feels equipped to do outpatient therapy at time of discharge. Final PT note states that patient was able to walk 120' using a wheeled walker with standby assistance. At time of discharge patient has no complaints denying chest pain, palpitations, shortness of breath, nausea/vomiting and abdominal pain. He notes that his pain is well controlled on the current regimen and he feels ready to go home. Patient discharged home with outpatient therapy in a stable condition. He was given the information to the radiation therapist PCP for follow up in 1 week. Status at Discharge Functional status at discharge: uses cane/walker Time Spent with Patient Time attestation: Total time spent providing and/or coordinating discharge services: Time spent: Greater than 30 minutes Exam Narrative: AF HR 79 RR 16 SPO2 100 BP 114/68 General: male in no acute respiratory distress who is nontoxic appearing, sitting up in chair HEENT: Normocephalic. Atraumatic. Extraocular movement intact. Sclera clear and anicteric. No facial asymmetry. Chest: Lungs are clear to auscultation bilaterally. No wheezes or crackles. CV: Heart was regular rate and rhythm. S1/S2. No murmurs, gallops, or rubs. Abd: Abdomen was soft. Nontender. Nondistended. Positive bowel sounds. Ext: No clubbing, cyanosis. DP pulses present. Edema to the right lower extremity. Dressing clean/dry/intact. DS: Data Data Completed and Pending Completed studies during hospitalization: Hip XR Chest XR Fluoroscopy Venous doppler Labs on day of discharge: Labs from last 24 hours 06/05/24 06/05/24 06/05/24 11:23 07:39 07:39 WBC 7.8 RBC 2.92 L Hgb 10.5 L Hct 31.1 L MCV 106.5 H MCH 36.0 H MCHC 33.8 RDW 12.2 Plt Count 212 MPV 10.7 H Sodium 137 Potassium 4.4 Chloride 105 Carbon Dioxide 29 Anion Gap 3 L BUN 26 H Creatinine 1.18 Estim Creat Clear Calc 40 Estimated GFR 60 Glucose 93 POC Capillary Glucose 135 H Calcium 8.6 Magnesium Cancelled 1.6 Total Bilirubin 1.0 AST 26 ALT 10 Alkaline Phosphatase 91 Total Protein 6.0 L Albumin 2.7 L 06/04/24 06/04/24 21:02 18:28 WBC RBC Hgb Hct MCV MCH MCHC RDW Plt Count MPV Sodium Potassium Chloride Carbon Dioxide Anion Gap BUN Creatinine Estim Creat Clear Calc Estimated GFR Glucose POC Capillary Glucose 107 H 101 Calcium Magnesium Total Bilirubin AST ALT Alkaline Phosphatase Total Protein Albumin Discharge Plan Discharge Attending physician on discharge: Patti Bartholomew Consulting providers: Brandie Cristobal; Grebing,Surendra R. Discharging Clinician: Andreea Franklin Anticipated Discharge Date/Time: 06/05/24 13:06 Patient Disposition: Home, Self-Care Activity: may shower, no driving and follow weight bearing status Diet: as tolerated Wound Care Instructions: follow printed instructions Discharge Instructions: Postoperative Hip Fracture Instructions Dr. Surendra Somers [phone] * Dressing to be changed daily with an island dressing beginning on post op day #2. May stop dressing changes at post op day #14. No sutures/mohan will need to be removed. Can allow Dermabond to fall off naturally. * Weight bearing: Weight bearing as tolerated. * You may shower with your dressing but do not submerge in a bath tub. * Do not drive or operate machinery until you are released by your surgeon. * Do not walk without a walker for any reason until you are released by your surgeon. * DVT prophylaxis x28 days post op. * Continue to apply ice to the hip intermittently for additional pain relief. Protect your skin with a towel or pillow case. * Continue to follow strict hip fracture precautions. * Please contact our office with any questions/concerns regarding your hip at [phone]. * Follow up appointment instructions indicated below. You have a blood clot to the lower extremity Started on eliquis, attached is information on this medication Care coordination has given you a coupon for first 30 days free, you are to take this medication as prescribed Strict bleeding precautions since you are being started on Eliquis including shaving with an electric razor, holding pressure for greater than 20 minutes for injury, protection of had with any falls, etc. You are to continue outpatient therapy Attached is a script for therapy and care coordination has given you a list of near by offices Strongly encourage alcohol cessation You have been started on folic acid, thiamine and a multi vitamin Take caution while standing, rising, or moving Change positions slowly taking a break between each position change If you standing feel dizzy sit back down and take a break Encouraged to continue with yearly vaccinations Return to the emergency department if he developed sudden shortness of breath, c hest pain, nausea, vomiting, upset stomach or intractable diarrhea Return to the emergency department if you develop fever greater than 101.5 Follow-up with the primary care physician within 1-2 weeks Thank you for choosing [facility] for your healthcare needs Patient Instructions: Apixaban (By mouth), Deep Vein Thrombosis (DC), Hip Fracture (ED), Safe Use of Anticoagulants (DC), Blood Thinners (DC) Patient Language: Syriac Stand Alone Forms: General Discharge Information Follow-up/Referrals: Surendra Somers MD [Physician] - 07/09/24 8:30 am Ryder Munson MD [Physician] - 1 Week Discharge Medications: New hydrocodone-acetaminophen 5-325 mg Tablet 1 tablet PO Q4-6H PRN (Reason: Pain Rated 4-6) Qty: 40 0RF Eliquis 5 mg Tablet 5 mg PO Q12HR 90 Days Qty: 180 0RF Rx Instructions: Start 06/12 Eliquis 5 mg Tablet 10 mg PO Q12HR Qty: 13 0RF Rx Instructions: Start tonight thiamine HCl (vitamin B1) [Vitamin B-1] 100 mg Tablet 100 mg PO QAM Qty: 30 0RF folic acid 1 mg Tablet 1 mg PO DAILY Qty: 30 0RF multivitamin with folic acid [Thera] 400 mcg Tablet 1 tablet PO QAM Qty: 30 0RF Other Ambulatory Orders: PT Outpatient Eval and Treat (ONCE) Timeframe: [id number] Location: Determined by Patient Ordered By: Andreea Franklin Date of admission: 05/30/24 16:20 Primary Care Provider: UNKNOWN,DOCTOR Admitting Provider: Eligio Mack Attending physician on admission: Andreea Franklin Condition: Stable Quality VTE Prophylaxis VTE prophylaxis: pharmacologic ordered Hospitalist MIPS Heart Failure (Exclusion) Patient has history of Heart Transplant or Left Ventricular Assistive Device?: No IF YES, STOP HERE Heart Failure (Qualifier) Patient has current or prior documentation of LVEF less than or equal to 40%, or mod/servere depressed LVSF?: No IF NO, STOP HERE
== END 2024-06-05 15:10 | disposition home or self-care (01) | DRG 308 ==
LOC: ANHED 14:22 → ANH3MEDSUR 18:39
PROVIDERS: Nurse Practitioner Family; Orthopaedic Surgery; Student in an Organized Health Care Education/Training Program; Admitting Provider Internal Medicine; Emergency Provider Emergency Medicine; Visit Provider Student in an Organized Health Care Education/Training Program
PROC: 0QS634Z Reposition Right Upper Femur with Internal Fixation Device, Percutaneous Approach (ICD-10-PCS; CPT 27245; principal; 2024-05-31 15:30)
DX: S72.141A Displaced intertrochanteric fracture of right femur, initial encounter for closed fracture (principal); T81.72XA Complication of vein following a procedure, not elsewhere classified, initial encounter; I82.411 Acute embolism and thrombosis of right femoral vein; W01.0XXA Fall on same level from slipping, tripping and stumbling without subsequent striking against object, initial encounter; M16.11 Unilateral primary osteoarthritis, right hip; F10.10 Alcohol abuse, uncomplicated; Z87.891 Personal history of nicotine dependence
CPT/HCPCS: 36415; 71045; 73502; 80048; 80053; 80307; 82077; 82948; 83735; 83880; 84100; 85025; 85027; 85610; 85730; 86850; 86900; 86901; 93005; 93971; 97110; 97116; 97162; 97165; 97530; 97535; 99199; 99285; A9270; C1713; J0330; J0360; J0690; J2003; J2405; J2704; J3010; J7120; J7121